=== PATIENT | male | born 2000 | race Caucasian/White ===

== ENCOUNTER 2019-12-15 05:31 | Emergency (ER) | payer MEDICAID, SELFPAY ==
[2019-12-15 05:35] VITALS: BP 148/84; PULSE 120; RESP 16; TEMP 36.5; O2SAT 98; BMI 21.9
[2019-12-15 05:41] VITALS: BP 140/94; PULSE 122; RESP 16; TEMP 36.9; O2SAT 98
--- NOTE | 2019-12-15 06:00 | PC.NURSE ---
Patient refused lab draw and needle stick explanation given as what it is for continued to refuse Dr Javed informed
[2019-12-15] MEDS: alum-mag-hydroxide-sime 30 mL UDC PO (06:14)
--- NOTE | 2019-12-15 06:17 | ED_ITS ---
HPI - Abdominal Pain General: Chief Complaint: Abdominal Pain Stated Complaint: abd pain Time Seen by Provider: 12/15/19 06:09 History of Present Illness: HPI narrative: This patient is a very nice 19-year-old male who presents with stomach pain. He is from [place] and drove up here to spend the weekend yesterday. He said he ate junk all day while he was driving and thinks that is what is causing his stomach pain. He said it feels like gas or indigestion. In the past he is taken Tums or omeprazole for it and it resolved. As he was traveling and its early he did not have anywhere to go to buy that. He came to the ED but he does not want to have any testing done. He refused labs. He denies nausea, vomiting, diarrhea. He is having normal bowel movements. He denies urinary symptoms. He denies fever cough. He does have some shortness of breath which he attributes to his history of asthma. He had an albuterol nebulizer this morning anything sets why his heart rate is high. MD elicited complaint: abdominal pain Onset (ago): hour(s) Pain Consistency: constant Location: Epigastric Severity: moderate Quality: fullness Radiation: none Migration to: no migration Exacerbating factors: nothing Relieving factors: nothing Associated Symptoms: Reports bloating Review of Systems GI: Reports: bloating Physical Exam Const: COMMON NORMALS: no acute distress, patient oriented x3, no limitations and alert GENERAL APPEARANCE: cooperative and comfortable HENMT: HEAD & SCALP: normal to inspection FACE & SINUS: normal facial exam Eye: GENERAL EYE: appearance normal, both eyes and all related structures Neck/C-Spine: COMMON NORMALS: supple, no meningeal signs and no JVD Chest: COMMONS NORMALS: normal inspection of the chest Resp: COMMON NORMALS: normal respiratory effort, No use of accessory muscles and clear to auscultation bilaterally (Except as noted) AUSCULTATION: clear to auscultation bilaterally (Except as noted) and wheezes (Trace, right upper) Cardio: COMMON NORMALS: no JVD, regular rhythm and No murmurs present (Cardio) RATE: tachycardic RHYTHM: regular rhythm GI: COMMON NORMALS: Normal to inspection, nondistended, normoactive bowel sounds present, Soft to palpation and non-tender INSPECTION: Yes normal to inspection AUSCULTATION: Yes normoactive bowel sounds PALPATION: Yes Soft to palpation and Yes Tenderness to palpation present (GI) (Minimal, epigastric) Back/Pelvis: COMMON NORMALS: thoracic and lumbar spine normal to inspection Extremity: COMMON NORMALS: normal to inspection Neuro: COMMON NORMALS: patient oriented x3, moves all extremities, no focal motor deficits and no sensory deficits noted SENSORIUM/ORIENTATION: Yes alert MENINGEAL SIGNS: Yes no meningeal signs Psych: COMMON NORMALS: mental status grossly normal, cooperative and normal affect Skin: COMMON NORMALS: no rashes or lesions noted and turgor normal GENERAL SKIN EXAM: no rashes or lesions noted and turgor normal Course ED course: I discussed with the patient that I would like to do some lab work to make sure there is nothing more serious than gas. A related to him some patients I could recall who presented with similar symptoms and ended up being appendicitis. He continued to prefer to not have lab work done. He has had this before and has had it resolve with Tums or omeprazole. He seems competent to make his own decisions and I will respect his wishes not to have any testing done. He seems to understand my concern. Will try some symptomatic treatment but he understands that if that is not working or if he is worsening later today that he needs to return for me to do some more testing. Vital Signs: Vital signs: Vital Signs Temperature 98.1 F 12/15/19 07:02 Pulse Rate 112 H 12/15/19 07:02 Respiratory Rate 18 12/15/19 07:02 Blood Pressure 145/79 12/15/19 07:02 Pulse Oximetry 98 12/15/19 07:02 Discharge Plan Discharge Patient Disposition: Home Clinical Impression: Abdominal pain Qualifiers: Abdominal location: epigastric Qualified Code(s): R10.13 - Epigastric pain Condition: Stable Discharge Orders: Discharge Order (Routine); Ordered 12/15/19 Ordered By: Eveline Olson Referrals: Elpidio Yadav MD [Primary Care Provider] - Discharge Diet: Usual diet Discharge Activity: Resume usual activity Patient Instructions: Abdominal Pain (ED) Activity Restrictions/Additional Instructions: Please return to the emergency department if you are not improving by the end of the day today. Your signs and symptoms could be indicating something more serious such as appendicitis. Discharge Date/Time: 12/15/19 07:05 Coding Level of Care Code ED Well Servicing Rig Operator for Chg Fwd Exam Comprehensive
[2019-12-15 07:02] VITALS: BP 145/79; PULSE 112; RESP 18; TEMP 36.7; O2SAT 98
== END 2019-12-15 07:05 | disposition home or self-care (01) ==
PROVIDERS: Emergency Provider Emergency Medicine; PCP Family Medicine
DX: R10.13 Epigastric pain (principal)
CPT/HCPCS: 12345; 99281

== ENCOUNTER 2021-06-30 20:25 | Inpatient (IN) | payer MEDICAID, SELFPAY ==
[2021-06-30] VITALS (9 sets, daily range): BP systolic 128–144; BP diastolic 70–84; PULSE 82–100; RESP 20–33; TEMP 36.7; O2SAT 90–100; BMI 22.2
--- NOTE | 2021-06-30 20:41 | XRR_ITS ---
PROCEDURE INFORMATION: Exam: XR Chest Exam date and time: 06/30/2021 8:46 PM Age: 21 years old Clinical indication: Dyspnea; Additional info: SOB TECHNIQUE: Imaging protocol: XR of the chest. Views: 1 view. COMPARISON: CR Chest 1 [place] [id number] 03/24/2019 4:11 AM FINDINGS: Lungs: No consolidation. Pleural spaces: No pleural effusion. No pneumothorax. Heart/Mediastinum: No cardiomegaly. Bones/joints: Unremarkable. XR/XR chest 1V portable [id number] IMPRESSION: 1. No acute abnormality demonstrated. 2. There is no interval change from the prior examination.
[2021-06-30 20:50] LABS: Basophils # 0.1 10^3/uL (0.0-0.1); Basophils % 0.7 %; Eosinophils # 0.7 10^3/uL (0.0-0.8); Eosinophils % 6.4 %; Hematocrit 50.6 % (42.0-52.0); Hemoglobin 16.3 g/dL (11.7-16.6); Lymphocytes # 2.8 10^3/uL (0.8-4.8); Lymphocytes % 24.1 %; Mean Corpuscular HGB Conc 32.2 g/dL (30.0-36.0); Mean Corpuscular Hemoglobin 28.5 pg (28.0-34.0); Mean Corpuscular Volume 88.5 fl (80-94); Mean Platelet Volume 9.4 fL (7.4-10.4); Monocytes % 9.1 %; Neutrophils # 6.79 10^3/uL (1.8-7.7); Neutrophils % 59.2 %; Nucleated Red Blood Cells % 0 %; Platelet Count 320 10^3/cmm (130-400); Red Blood Count 5.72 10^6/uL (4.1-5.3); Red Cell Distribution Width 13.2 % (12.1-15.1); White Blood Count 11.5 10^3/uL (4.0-10.0)
[2021-06-30] MEDS: magnesium sulfate premix 2 GM/50 ML PIGGYBACK IV (20:54)
[2021-06-30] MEDS: ipratropium-albuterol 3 mL Neb INHALATION (20:56)
[2021-06-30 21:12] LABS: Alanine Aminotransferase 10 U/L (0-41); Albumin Level 4.8 g/dL (3.5-5.2); Alkaline Phosphatase 116 IU/L (40-130); Anion Gap 14.1 (5-19); Aspartate Amino Transferase 15 U/L (0-40); Blood Urea Nitrogen 10 mg/dL (6-20); Calcium 9.8 mg/dL (8.5-10.5); Carbon Dioxide 26 mmol/L (22-29); Chloride 101 mmol/L (98-107); Globulin 2.6 g/dL (1.3-4.6); Glomerular Filtration Rate 104.6 mL/min (90-130); Glucose 88 mg/dL (65-115); Osmolality Calculated 282 mOsm/kg (285-295); Potassium 4.1 mmol/L (3.5-5.1); Sodium 137 mmol/L (136-145); Total Bilirubin 0.4 mg/dL (0.15-1.2); Total Protein 7.4 g/dL (6.6-8.7)
[2021-06-30] MEDS: LORazepam 2 mg/mL INJ 1 mL IVP (21:30)
[2021-06-30 22:47] LABS: ABG PCO2 41.9 mmHg (35-45); ABG PH Result 7.42 (7.35-7.45); Base Excess ABG 2.3 mmol/L (-2.0-2.0); Blood Gas Allen Test Pos; Blood Gas Sample Site Radial, right; Blood Gas Sample Type Arterial; HCO3 ABG 27.1 mmol/L (22-26); Oxygen Device BIPAP
--- NOTE | 2021-06-30 22:56 | PC.NURSE ---
Report given to MARE Reyez
--- NOTE | 2021-06-30 22:59 | ED_ITS ---
HPI - SOB/Dyspnea General: Chief Complaint: Shortness of Breath/Dyspnea Stated Complaint: SOB\Asthma Time Seen by Provider: 06/30/21 20:38 Source: patient History of Present Illness: HPI Narrative: 21-year-old male with a history of asthma. He tells me he also has a history of vocal cord dysfunction. He presents with shortness of breath, progressing over the last day or so. He denies fever. He has been coughing. He has used his nebulizer machine at home multiple times without improvement. With his asthma, he has a history of multiple intubations. MD elicited complaint: shortness of breath and cough Pertinent past history: asthma Onset (ago): hour(s) Timing: constant and progressively worsening Severity: severe Exacerbating factors: lying flat, exertion and coughing Relieving factors: nothing Known history of: asthma Associated symptoms: Reports chest congestion, chest pain, cough and nausea; Deny abdominal pain, diaphoresis, fever(s), hemoptysis or vomiting Treatment prior to arrival: bronchodilator Review of Systems Const: Denies: fever(s) or diaphoresis Eyes: Denies: change in vision ENMT: Denies: throat pain Card: Reports: chest pain Resp: Reports: dyspnea, non-productive cough and chest congestion; Denies: hemoptysis GI: Reports: nausea; Denies: abdominal pain or vomiting Skin/Breast: Denies: rash Neuro: Denies: headache(s) PFSH ED PFSH: Medical History Asthma Laryngopharyngeal reflux Vocal cord dysfunction Surgical History H/O rhinoplasty Family History Mother Asthma Father Asthma Social History Smoking and tobacco status: never smoked Alcohol intake: never Lives independently: Yes Marital status: Single Current occupational status: employed Physical Exam Const: GENERAL APPEARANCE: cooperative, in distress and ill appearing HENMT: COMMON NORMALS: normocephalic, atraumatic and Normal external nose present HEAD & SCALP: normocephalic and atraumatic FACE & SINUS: normal facial exam and face symmetric NOSE: Normal external nose present Eye: COMMON NORMALS: Equal, round and reactive pupils present and EOMs intact bilaterally PUPIL: Yes Equal, round and reactive pupils present Neck/C-Spine: GENERAL: No anterior neck swelling Chest: COMMONS NORMALS: normal inspection of the chest Resp: EFFORT & INSPECTION: Yes respiratory distress, Yes labored, Yes retractions and Yes uses accessory muscles AUSCULTATION: wheezes Cardio: COMMON NORMALS: regular rate and regular rhythm RATE: regular rate RHYTHM: regular rhythm GI: COMMON NORMALS: Normal to inspection, nondistended, normoactive bowel sounds present and Soft to palpation INSPECTION: No abdominal distension PALPATION: Yes Soft to palpation Extremity: COMMON NORMALS: no pedal edema Neuro: BJ COMA SCALE: document GCS findings Bj coma scale eye opening: Spontaneous [place] coma scale verbal response: Orientated Bj coma scale motor response: Obey commands [place] coma scale total score: 15 Course Vital Signs: Vital signs: Vital Signs Temperature 98.3 F 07/01/21 00:37 Pulse Rate 72 07/01/21 03:13 Respiratory Rate 14 07/01/21 03:13 Blood Pressure 118/74 07/01/21 00:11 Pulse Oximetry 97 07/01/21 03:13 MDM - SOB/Dyspnea Medical Decision Making Patient presents in significant respiratory distress, wheezing, with some st ridor as well. On arrival, he was given DuoNeb treatment followed by 3 [id number] albuterol treatments with mild improvement. He was still struggling to breathe, so was placed on BiPAP. He seems to be doing better. Current respiratory rate is 14. Heart rate is 84, saturations 95%. Blood pres sure is 131/70. His white blood cell count is 11.5. pH is 7.42 with a PCO2 of 42, and PO2 of 131. FiO2 of 0.3. Chest x-ray is negative. He will need to be admitted to ICU, especially given his history. He is received 125 mg of Solu- Medrol as well as magnesium sulfate 2 g. Lab Data : 06/30/21 20:43 06/30/21 20:43 Labs/Radiology: Radiology Impressions Chest X-Ray 06/30/21 20:41 IMPRESSION: 1. No acute abnormality demonstrated. 2. There is no interval change from the prior examination. Laboratory Results WBC 11.5 10^3/uL (4.0-10.0) H 06/30/21 20:43 RBC 5.72 10^6/uL (4.1-5.3) H 06/30/21 20:43 Hgb 16.3 g/dL (11.7-16.6) 06/30/21 20:43 Hct 50.6 % (42.0-52.0) 06/30/21 20:43 MCV 88.5 fl (80-94) 06/30/21 20:43 MCH 28.5 pg (28.0-34.0) 06/30/21 20:43 MCHC 32.2 g/dL (30.0-36.0) 06/30/21 20: RDW 13.2 % (12.1-15.1) 06/30/21 20:43 Plt Count 320 10^3/cmm (130-400) 06/30/21 20:43 MPV 9.4 fL (7.4-10.4) 06/30/21 20:43 Neut % (Auto) 59.2 % 06/30/21 20:43 Lymph % (Auto) 24.1 % 06/30/21 20:43 Leon % (Auto) 9.1 % 06/30/21 20:43 Eos % (Auto) 6.4 % 06/30/21 20:43 Baso % (Auto) 0.7 % 06/30/21:43 Neut # (Auto) 6.79 10^3/uL (1.8-7.7) 06/30/21 20:43 Lymph # (Auto) 2.8 10^3/uL (0.8-4.8) 06/30/21 20:43 Leon # (Auto) 1.0 10^3/uL (0.2-0.9) H 06/30/21 20:43 Eos # (Auto) 0.7 10^3/uL (0.0-0.8) 06/30/21 20:43 Baso # (Auto) 0.1 10^3/uL (0.0-0.1) 06/30/21 20:43 Nucleated RBC % (auto) 0 % 06/30/21: Nucleated RBCs # 0.0 /100WBC 06/30/21 20:43 Specimen Type Arterial 06/30/21 10:30 Sample Site Radial, right 06/30/21 10:30 ABG pH 7.42 (7.35-7.45) 06/30/21 10:30 ABG pCO2 41.9 mmHg (35-45) 06/30/21 10:30 ABG pO2 131.0 mmHg (80.0-100.0) H 06/30/21 10:30 ABG HCO3 27.1 mmol/L (22-26) H 06/30/21 10:30 ABG Base Excess 2.3 mmol/L (-2.0-2.0) H 06/30/21 10:30 Sachin Test Pos 06/30/21 10:30 Hematocrit 48.0 % (42-52) 06/30/21 10:30 O2 Delivery Device Bipap 06/30/21 10:30 FiO2 30.0 % 06/30/21 10:30 PEEP 6.0 cmH20 06/30/21 10:30 Production Scheduler ID Kiersteneri 06/30/21 10:30 Sodium 137 mmol/L (136-145) 06/30/21 20:43 Potassium 4.1 mmol/L (3.5-5.1) 06/30/21 20:43 Chloride 101 mmol/L (98-107) 06/30/21 20:43 Carbon Dioxide 26 mmol/L (22-29) 06/30/21 20:43 Anion Gap 14.1 (5-19) 06/30/21 20:43 BUN 10 mg/dL (6-20) 06/30/21 20:43 Creatinine 0.9 mg/dL (0.7-1.2) 06/30/21 20:43 GFR Calculation 104.6 mL/min (90-130) 06/30/21 20:43 Glucose 88 mg/dL (65-115) 06/30/21 20:43 Calculated Osmolality 282 mOsm/kg (285-295) L 06/30/21 20:43 Calcium 9.8 mg/dL (8.5-10.5) 06/30/21 20:43 Total Bilirubin 0.4 mg/dL (0.15-1.2) 06/30/21 20:43 AST 15 U/L (0-40) 06/30/21 20:43 ALT 10 U/L (0-41) 06/30/21 20:43 Alkaline Phosphatase 116 IU/L (40-130) 06/30/21 20:43 Total Protein 7.4 g/dL (6.6-8.7) 06/30/21 20:43 Albumin 4.8 g/dL (3.5-5.2) 06/30/21 20:43 Globulin 2.6 g/dL (1.3-4.6) 06/30/21 20:43 Critical Care Time Critical Care Time: Critical Care Time: Yes Total Critical Care Time: 36 Attestation: This case had a high probability of a clinically significant, sudden, or life threatening deterioration of this patient's condition which required my full and direct attention, intervention and personal management. Time is independent of any procedures performed. Discharge Plan Discharge Patient Disposition: Admitted As Inpatient Admit Provider: Brandon Bentley Clinical Impression: Status asthmaticus Condition: Stable Coding Level of Care Code ED Branch Officer for Chg Fwd Exam Comprehensive
[2021-06-30] MEDS: racepinephrine 0.5 mL Neb INHALATION (23:49)
[2021-07-01] VITALS (242 sets, daily range): BP systolic 93–136; BP diastolic 38–80; PULSE 59–137; RESP 0–32; TEMP 36.5–36.8; O2SAT 87–100
--- NOTE | 2021-07-01 00:29 | XRR_ITS ---
PROCEDURE INFORMATION: Exam: XR Soft Tissue Neck Exam date and time: 07/01/2021 5:18 AM Age: 21 years old Clinical indication: Epiglottitis; Chronic; Additional info: Epiglottis TECHNIQUE: Imaging protocol: XR of the soft tissues of the neck. COMPARISON: CR (CHEST, ) 06/30/2021 8:46 PM FINDINGS: Airway: Normal. No abnormal narrowing. Soft tissues: Normal. Normal epiglottis. Bones/joints: Unremarkable. XR/XR soft tissue neck 12511 IMPRESSION: No acute findings. The epiglottis is normal in configuration.
--- NOTE | 2021-07-01 00:29 | PM.HP ---
Providers/Chief Complaint Admitting Physician: Brandon Bentley Primary Care Provider: Elpidio Yadav MD Chief Complaint: SOB\Asthma History of Present Illness 21-year-old gentleman with history of asthma, vocal cord dysfunction, reports he had been sprayed painting a house outdoors and today started feeling short of breath, he states that he used his nebulizer with albuterol at home, but did not feel better. Came into ER where he was found to have diminished air entry bilaterally, was given DuoNeb, subsequently albuterol neb x3, given dose of Solu-Medrol, still sounding tight, was given a dose of magnesium, with some upper respiratory/vocal cord wheeze, is given racemic epinephrine as well. Has history of intubation mechanical ventilation in the past. He is maintaining oxygen saturation well. ABG is 7.42/41 point /27. Chest x-ray unremarkable. COVID-19 PCR is requested. He has been afebrile, noted minimal leukocytosis 11.5. He has had no headache, nausea vomiting or diarrhea. No muscle aches or chills. No pharyngeal symptoms. He has not been drooling. States that he is hungry and is requesting for some broth. Review of Systems Const: Denies: fever(s), chills, body aches or malaise Eyes: Denies: change in vision, eye discomfort or eye redness ENMT: Denies: throat pain, oral sores or ear or mastoid pain Card: Denies: chest pain, edema, pre-syncope or dyspnea on exertion Resp: Reports: dyspnea and wheezing; Denies: productive cough, change in phlegm color or hemoptysis GI: Denies: abdominal pain, nausea, vomiting, diarrhea, constipation, hematochezia or melena : Denies: flank pain, difficulty urinating, urinary frequency or hematuria Musc: Denies: back pain, joint swelling or joint redness Skin/Breast: Denies: rash or new lesions Neuro: Denies: headache(s), numbness in extremities, weakness in extremities, dizziness, confusion or seizure-like activity Endo: Denies: polyuria or polydipsia Raphael/Lymph: Denies: easy bleeding or tender lymph nodes All/Imm: Denies: urticaria or tongue swelling Medications/Allergies Home Medications Medication Instructions Recorded Confirmed Last Taken Type albuterol sulfate 2.5 mg INHALATION Q4H PRN 02/02/20 02/02/20 Unknown History albuterol sulfate 90 mcg/actuation 2 puff INHALATION Q4H PRN gm 02/02/20 02/02/20 Unknown History aerosol inhaler (ProAir HFA) cetirizine 10 mg capsule (Zyrtec) 10 mg PO DAILY 02/02/20 02/02/20 Unknown History Allergies Allergy/AdvReac Type Severity Reaction Status Date / Time codeine AdvReac ADR-Halluci Verified 06/30/21 21:52 nating PFSH Acute PFSH: Medical History Asthma Laryngopharyngeal reflux Vocal cord dysfunction Surgical History H/O rhinoplasty Family History Mother Asthma Father Asthma Social History Smoking and tobacco status: never smoked Alcohol intake: never Lives independently: Yes Marital status: Single Current occupational status: employed Vitals/I&O/Wt Last Vital Signs Temp 98.0 F 06/30/21 20:35 Pulse 90 07/01/21 00:11 Resp 30 H 07/01/21 00:11 BP 118/74 07/01/21 00:11 Pulse Ox 95 07/01/21 00:11 Weight last 48 hrs Weight 64.41 kg Physical Exam Const: COMMON NORMALS: alert GENERAL APPEARANCE: cooperative ORIENTATION/CONSCIOUSNESS: Yes awake HENMT: COMMON NORMALS: normocephalic, EAC's normal, Normal external nose present and moist oral mucous membranes HEAD & SCALP: normocephalic NOSE: Normal external nose present EXTERNAL AUDITORY CANAL: EAC's normal Neck/C-Spine: COMMON NORMALS: no meningeal signs Chest: CHEST: Yes Symmetrical chest wall rise Resp: AUSCULTATION: wheezes (Some wheezing noted, although mostly from around vocal cords) and diminished lung sounds (Mildly) Cardio: COMMON NORMALS: regular rate, regular rhythm and No murmurs present (Cardio) RATE: regular rate RHYTHM: regular rhythm GI: COMMON NORMALS: Normal to inspection, nondistended, normoactive bowel sounds present, Soft to palpation and non-tender PALPATION: Yes Soft to palpation Extremity: COMMON NORMALS: no pedal edema Neuro: COMMON NORMALS: moves all extremities SENSORIUM/ORIENTATION: Yes alert MENINGEAL SIGNS: Yes no meningeal signs Psych: COMMON NORMALS: mental status grossly normal Skin: COMMON NORMALS: no wounds RASHES: no rashes Data : 06/30/21 20:43 06/30/21 20:43 Micro: Microbiology 06/30/21 21:10 Blood Culture - Preliminary Blood SPECIMEN COLLECTED 06/30/21 20:40 Blood Culture - Preliminary Blood SPECIMEN COLLECTED A&P Assessment and plan (1) Status asthmaticus: Asthma exacerbation, appears mostly with vocal cord dysfunction as well given some upper respiratory wheezing around vocal cords noted on exam. For now continue with nebulization treatments, steroids, inhaled steroids. Status: Acute (2) Vocal cord dysfunction: States he used to follow with a industrial electrical technician in [place], but can no longer afford to keep going to [place] for follow-up. Status: Acute Attestations Medical Necessity Statement*: Admission of over 2 midnights is anticipated for status asthmaticus. Coding Level of Care Code Acute Marketing Graphics Specialist for [facility] Diagnoses Status asthmaticus J45.902 Vocal cord dysfunction J38.3
[2021-07-01 01:56] LABS: Adenovirus Not Detected (NOT DETECT); Chlamydia Pneumoniae Not Detected (NOT DETECT); Coronavirus 229E,HKU1,NL63,OC4 Not Detected (NOT DETECT); Human Metapneumovirus Not Detected (NOT DETECT); Human Rhinovirus/Enterovirus Not Detected (NOT DETECT); Influenza A Not Detected (NOT DETECT); Influenza A H1 Not Detected (NOT DETECT); Influenza A H1-2009 Not Detected (NOT DETECT); Influenza A H3 Not Detected (NOT DETECT); Influenza B Not Detected (NOT DETECT); Mycoplasma Pneumoniae Not Detected (NOT DETECT); Parainfluenza Virus Type 1 Not Detected (NOT DETECT); Parainfluenza Virus Type 2 Not Detected (NOT DETECT); Parainfluenza Virus Type 3 Not Detected (NOT DETECT); Parainfluenza Virus Type 4 Not Detected (NOT DETECT); Respiratory Syncytial Virus A Not Detected (NOT DETECT); Respiratory Syncytial Virus B Not Detected (NOT DETECT); SARS-COV-2 Not Detected (NOT DETECT)
[2021-07-01] MEDS: pantoprazole 40 mg SDV IVP (02:43)
[2021-07-01] MEDS: budesonide 0.5 mg/2 mL Neb INHALATION ×2 (08:11→20:00)
--- NOTE | 2021-07-01 09:55 | PC.PHAR ---
pt states he takes care of his own medications-pt states gave him prednisone as a titrating dose- office states last gave 2019 20mg take 40mg daily for 5 days office states not seen pt since 2019-pt states he filled at [facility] states not filled anything for 18 months for the pt-pt states he just stop taking prednisone last week sometime-notes are made in the pharmacy comments
--- NOTE | 2021-07-01 12:14 | PC.CHAP ---
Pastoral Care Encounter/Spiritual Assessment Type of Contact [] Declined cover making machine operator visit [] Patient/Family/Request visit [] Outpatient visit [] Follow-up visit [] Physician referral [] Code/Alert [x] Routine visit [] Staff referral [] Actively dying [] Patient sleeping [] Family support [] [] Out of room [] Palliative care [] [] Receiving care in room [] Pre-surgical visit [] Trauma [] Long length of stay [x] ICU visit [] Other: Relational/Emotional Strength [] Patient feels connected with others/family/visitors/staff [] Distress [] Loneliness/isolation [] Abandonment Spirituality of Patient [] Person of Maria Teresa [] Attends Advent of their Maria Teresa [] Believes in Prayer [] Reads Bible or Quaker materials [] There are Spiritual issues to be addressed Clinical Transplant Coordinator Interventions [x] Prayer [] Active listening [] Non-anxious presence [] Spiritual/emotional support [] Crisis/trauma care [] Spiritual counseling [] Bereavement support [] Provided bereavement packet [] Provided Bible/devotional materials [] Provided toy/stuffed animal, coloring book to patient or family member [] Provided Communion [] Anointing/[place] [] Salvation [x] Completed spiritual assessment [] Other: Impact on Illness or Injury [] Angry [] Fearful [] Anxious [] Often cries [] Exhaustion [] Unable to work [] Unable to attend spiritism [] Unable to walk/stand [] Unable to read [] Unable to drive [] Unable to eat/drink [] Unable to sleep [] Unable to be with family [] Patient intubated [] Other: Summary Time spent with patient x
--- NOTE | 2021-07-01 14:19 | PM.PN ---
Subjective Subjective: Patient was seen this morning, currently on room air, he tells me that his airway still feel quite tight, but he overall feels better, no fevers, no chills, no nausea, no vomiting Vitals/I&O/Wt Last Vital Signs Temp 97.7 F 07/01/21 07:30 Pulse 86 07/01/21 12:05 Resp 14 07/01/21 12:05 BP 118/43 07/01/21 12:05 Pulse Ox 96 07/01/21 12:05 06/30/21 07/01/21 07/01/21 22:59 06:59 14:59 Intake Total 240 / 240 Output Total 750 / 750 Balance -510 / -510 Weight last 48 hrs Weight 64.41 kg Physical Exam Const: COMMON NORMALS: no acute distress and patient oriented x3 Resp: COMMON NORMALS: normal respiratory effort and No use of accessory muscles AUSCULTATION: diminished lung sounds bilateral OTHER: Wheezing heard Cardio: COMMON NORMALS: regular rate, regular rhythm, S1 normal heart sound present and S2 normal heart sound present RATE: regular rate RHYTHM: regular rhythm HEART SOUNDS: S1 normal heart sound present and S2 normal heart sound present GI: COMMON NORMALS: Normal to inspection, nondistended, normoactive bowel sounds present, Soft to palpation, non-tender and No hepatosplenomegaly present PALPATION: Yes Soft to palpation and Yes No hepatosplenomegaly present Extremity: COMMON NORMALS: no pedal edema Neuro: COMMON NORMALS: patient oriented x3 Psych: COMMON NORMALS: mental status grossly normal Data : 06/30/21 20:43 06/30/21 20:43 Micro: Microbiology 06/30/21 21:10 Blood Culture - Preliminary Blood SPECIMEN COLLECTED 06/30/21 20:40 Blood Culture - Preliminary Blood SPECIMEN COLLECTED A&P Assessment and plan (1) Status asthmaticus: Asthma exacerbation, appears mostly with vocal cord dysfunction as well given some upper respiratory wheezing around vocal cords noted on exam. For now continue with nebulization treatments, steroids, inhaled steroids. Status: Acute (2) Vocal cord dysfunction: States he used to follow with a college admissions counselor in [place], but can no longer afford to keep going to [place] for follow-up. Status: Acute Attestations Medical Necessity Statement*: Patient requires hospitalization for asthma exacerbation, Coding Level of Care Code Acute Reinforcing Bar Setter for [facility] Diagnoses Status asthmaticus J45.902 Vocal cord dysfunction J38.3
[2021-07-01] MEDS: doxycycline 100 MG in sodium chloride 0.9% (plus) 100 ML IV (15:07)
[2021-07-01] MEDS: racepinephrine 0.5 mL Neb INHALATION (15:10)
[2021-07-01] MEDS: magnesium sulfate premix 2 GM/50 ML PIGGYBACK IV (15:13)
[2021-07-02] VITALS (101 sets, daily range): BP systolic 100–134; BP diastolic 41–71; PULSE 69–132; RESP 11–27; TEMP 36.6–36.8; O2SAT 92–99
[2021-07-02] MEDS: pantoprazole 40 mg SDV IVP (01:38)
[2021-07-02] MEDS: doxycycline 100 MG in sodium chloride 0.9% (plus) 100 ML IV ×2 (03:57→14:30)
[2021-07-02 03:59] LABS: Basophils % 0.1 %; Eosinophils % 0.1 %; Hematocrit 45.6 % (42.0-52.0); Hemoglobin 14.9 g/dL (11.7-16.6); Lymphocytes # 1.5 10^3/uL (0.8-4.8); Lymphocytes % 7.9 %; Mean Corpuscular HGB Conc 32.7 g/dL (30.0-36.0); Mean Corpuscular Hemoglobin 29.1 pg (28.0-34.0); Mean Corpuscular Volume 89.1 fl (80-94); Mean Platelet Volume 9.6 fL (7.4-10.4); Monocytes # 1.3 10^3/uL (0.2-0.9); Monocytes % 6.5 %; Neutrophils # 16.45 10^3/uL (1.8-7.7); Neutrophils % 84.6 %; Nucleated Red Blood Cells % 0 %; Platelet Count 323 10^3/cmm (130-400); Red Blood Count 5.12 10^6/uL (4.1-5.3); Red Cell Distribution Width 12.4 % (12.1-15.1); White Blood Count 19.4 10^3/uL (4.0-10.0)
[2021-07-02 04:17] LABS: Anion Gap 15.2 (5-19); Blood Urea Nitrogen 19 mg/dL (6-20); Calcium 9.5 mg/dL (8.5-10.5); Carbon Dioxide 24 mmol/L (22-29); Chloride 103 mmol/L (98-107); Glomerular Filtration Rate 119.8 mL/min (90-130); Glucose 155 mg/dL (65-115); Osmolality Calculated 289 mOsm/kg (285-295); Potassium 5.2 mmol/L (3.5-5.1); Sodium 137 mmol/L (136-145)
[2021-07-02] MEDS: budesonide 0.5 mg/2 mL Neb INHALATION ×2 (07:40→20:22)
--- NOTE | 2021-07-02 13:13 | P.PN_ITS ---
Subjective Subjective: Patient was seen this morning, he tells me his breathing has significantly improved, he did have an episode of airway tightness yesterday afternoon, but it subsequently resolved, no recurrent symptoms, no trouble breathing, no trouble swallowing Vitals/I&O/Wt Last Vital Signs Temp 97.8 F 07/02/21 04:00 Pulse 77 07/02/21 11:07 Resp 15 07/02/21 11:07 BP 113/50 07/02/21 04:00 Pulse Ox 96 07/02/21 11:07 07/01/21 07/02/21 07/02/21 22:59 06:59 14:59 Intake Total 422 / 662 130 / 130 Output Total 750 / 1500 Balance -328 / -838 130 / 130 Weight last 48 hrs Weight 64.41 kg Physical Exam Const: COMMON NORMALS: no acute distress and patient oriented x3 Resp: COMMON NORMALS: normal respiratory effort, No retractions and No use of accessory muscles AUSCULTATION: wheezes Cardio: COMMON NORMALS: regular rate, regular rhythm, S1 normal heart sound present and S2 normal heart sound present RATE: regular rate RHYTHM: regular rhythm HEART SOUNDS: S1 normal heart sound present and S2 normal heart sound present GI: COMMON NORMALS: Normal to inspection, nondistended, normoactive bowel sounds present, Soft to palpation, non-tender and No hepatosplenomegaly present PALPATION: Yes Soft to palpation and Yes No hepatosplenomegaly present Extremity: COMMON NORMALS: no pedal edema Neuro: COMMON NORMALS: patient oriented x3 Psych: COMMON NORMALS: mental status grossly normal Data : 07/02/21 03:36 07/02/21 03:36 Micro: Microbiology 06/30/21 21:10 Blood Culture - Preliminary Blood NEGATIVE TO DATE 06/30/21 20:40 Blood Culture - Preliminary Blood NEGATIVE TO DATE A&P Assessment and plan (1) Status asthmaticus: Asthma exacerbation, appears mostly with vocal cord dysfunction as well given some upper respiratory wheezing around vocal cords noted on exam. For now continue with nebulization treatments, steroids, inhaled steroids. Doxycycline added for anti-inflammatory coverage, Kayexalate for hyperkalemia Status: Acute (2) Vocal cord dysfunction: States he used to follow with a plumbing installer in [place], but can no longer afford to keep going to [place] for follow-up. Status: Acute Attestations Medical Necessity Statement*: Patient requires hospitalization for acute asthma exacerbation, critical care time spent over 25 minutes Coding Level of Care Code Acute Project Product Manager for Milagro Alberto Diagnoses Status asthmaticus J45.902 Vocal cord dysfunction J38.3
[2021-07-02] MEDS: sodium polystyrene sulfonate 15 gm/60 mL Btl PO (14:29)
[2021-07-02 22:34] LABS: Glucose Point of Care 144 mg/dL (70-110)
[2021-07-03] VITALS (43 sets, daily range): BP systolic 111–140; BP diastolic 52–62; PULSE 66–107; RESP 13–24; TEMP 36.6–37.1; O2SAT 93–100
[2021-07-03] MEDS: pantoprazole 40 mg SDV IVP ×2 (00:14→23:56)
[2021-07-03] MEDS: doxycycline 100 MG in sodium chloride 0.9% (plus) 100 ML IV ×2 (03:01→14:40)
[2021-07-03 03:02] LABS: Basophils % 0.2 %; Hematocrit 43.5 % (42.0-52.0); Lymphocytes # 1.2 10^3/uL (0.8-4.8); Lymphocytes % 6.5 %; Mean Corpuscular HGB Conc 32.2 g/dL (30.0-36.0); Mean Corpuscular Hemoglobin 28.5 pg (28.0-34.0); Mean Corpuscular Volume 88.6 fl (80-94); Monocytes # 0.8 10^3/uL (0.2-0.9); Monocytes % 4.1 %; Neutrophils # 16.59 10^3/uL (1.8-7.7); Nucleated Red Blood Cells % 0 %; Platelet Count 321 10^3/cmm (130-400); Red Blood Count 4.91 10^6/uL (4.1-5.3); Red Cell Distribution Width 12.6 % (12.1-15.1); White Blood Count 18.9 10^3/uL (4.0-10.0)
[2021-07-03 03:32] LABS: Blood Urea Nitrogen 16 mg/dL (6-20); Calcium 9.5 mg/dL (8.5-10.5); Carbon Dioxide 23 mmol/L (22-29); Chloride 105 mmol/L (98-107); Glomerular Filtration Rate 119.8 mL/min (90-130); Glucose 154 mg/dL (65-115); Osmolality Calculated 288 mOsm/kg (285-295); Sodium 137 mmol/L (136-145)
[2021-07-03 03:37] LABS: Anion Gap 13.4 (5-19); Potassium 4.4 mmol/L (3.5-5.1)
[2021-07-03] MEDS: budesonide 0.5 mg/2 mL Neb INHALATION ×2 (08:18→19:57)
--- NOTE | 2021-07-03 12:07 | PC.CHAP ---
Pastoral Care Encounter/Spiritual Assessment Type of Contact [] Declined merchandise execution leader visit [] Patient/Family/Request visit [] Outpatient visit [] Follow-up visit [] Physician referral [] Code/Alert []x Routine visit [] Staff referral [] Actively dying [x] Patient sleeping [] Family support [] [] Out of room [] Palliative care [] [] Receiving care in room [] Pre-surgical visit [] Trauma [] Long length of stay [x] ICU visit [] Other: Relational/Emotional Strength [] Patient feels connected with others/family/visitors/staff [] Distress [] Loneliness/isolation [] Abandonment Spirituality of Patient [] Person of Maria Teresa [] Attends Pentecostal of their Maria Teresa [] Believes in Prayer [] Reads Bible or Yarsanism materials [] There are Spiritual issues to be addressed Booking Manager Interventions [x] Prayer [] Active listening [] Non-anxious presence [] Spiritual/emotional support [] Crisis/trauma care [] Spiritual counseling [] Bereavement support [] Provided bereavement packet [] Provided Bible/devotional materials [] Provided toy/stuffed animal, coloring book to patient or family member [] Provided Communion [] Anointing/[place] [] Salvation [x] Completed spiritual assessment [] Other: Impact on Illness or Injury [] Angry [] Fearful [] Anxious [] Often cries [] Exhaustion [] Unable to work [] Unable to attend evangelical [] Unable to walk/stand [] Unable to read [] Unable to drive [] Unable to eat/drink [] Unable to sleep [] Unable to be with family [] Patient intubated [] Other: Summary Time spent with patient
--- NOTE | 2021-07-03 12:51 | PM.PN ---
Subjective Subjective: Patient was seen this morning, he tells me that his breathing has significantly improved, afebrile overnight Vitals/I&O/Wt Last Vital Signs Temp 98.1 F 07/03/21 04:00 Pulse 72 07/03/21 08:30 Resp 14 07/03/21 08:30 BP 111/56 07/03/21 08:30 Pulse Ox 93 07/03/21 08:20 07/02/21 07/03/21 07/03/21 22:59 06:59 14:59 Intake Total 1162 / 1292 100 / 1392 240 / 240 Output Total 1200 / 1999 Balance -38 / -708 100 / -608 240 / 240 Physical Exam Const: COMMON NORMALS: no acute distress and patient oriented x3 Resp: COMMON NORMALS: normal respiratory effort, No retractions and No use of accessory muscles EFFORT & INSPECTION: Yes able to speak in complete sentences AUSCULTATION: wheezes Cardio: COMMON NORMALS: regular rate, regular rhythm, S1 normal heart sound present and S2 normal heart sound present RATE: regular rate RHYTHM: regular rhythm HEART SOUNDS: S1 normal heart sound present and S2 normal heart sound present GI: COMMON NORMALS: Normal to inspection, nondistended, normoactive bowel sounds present, Soft to palpation, non-tender and No hepatosplenomegaly present PALPATION: Yes Soft to palpation and Yes No hepatosplenomegaly present Extremity: COMMON NORMALS: no pedal edema Neuro: COMMON NORMALS: patient oriented x3 Psych: COMMON NORMALS: mental status grossly normal Data : 07/03/21 02:47 07/03/21 02:47 Micro: Microbiology 06/30/21 20:40 Blood Culture - Preliminary Blood 06/30/21 21:10 Blood Culture - Preliminary Blood Staphylococcus sp coag neg A&P Assessment and plan (1) Status asthmaticus: Asthma exacerbation, appears mostly with vocal cord dysfunction as well given some upper respiratory wheezing around vocal cords noted on exam. For now continue with nebulization treatments, steroids, inhaled steroids. Doxycycline added for anti-inflammatory coverage, Kayexalate for hyperkalemia Status: Acute (2) Vocal cord dysfunction: States he used to follow with a beater engineer in [place], but can no longer afford to keep going to [place] for follow-up. Status: Acute Attestations Medical Necessity Statement*: Cross hospitalization for asthma exacerbation Coding Level of Care Code Acute Supervisor Brake Repair for Chg Fwd Diagnoses Status asthmaticus J45.902 Vocal cord dysfunction J38.3
[2021-07-04] VITALS (20 sets, daily range): BP systolic 132–145; BP diastolic 60–85; PULSE 78–106; RESP 14–23; TEMP 36.6–37.1; O2SAT 93–97
[2021-07-04] MEDS: doxycycline 100 MG in sodium chloride 0.9% (plus) 100 ML IV ×2 (03:17→15:34)
[2021-07-04 04:25] LABS: Basophils % 0.2 %; Hematocrit 42.9 % (42.0-52.0); Hemoglobin 13.9 g/dL (11.7-16.6); Lymphocytes # 1.2 10^3/uL (0.8-4.8); Mean Corpuscular HGB Conc 32.4 g/dL (30.0-36.0); Mean Corpuscular Hemoglobin 28.5 pg (28.0-34.0); Mean Corpuscular Volume 87.9 fl (80-94); Mean Platelet Volume 9.6 fL (7.4-10.4); Monocytes # 0.8 10^3/uL (0.2-0.9); Monocytes % 3.9 %; Neutrophils # 17.04 10^3/uL (1.8-7.7); Neutrophils % 86.6 %; Nucleated Red Blood Cells % 0 %; Platelet Count 291 10^3/cmm (130-400); Red Blood Count 4.88 10^6/uL (4.1-5.3); Red Cell Distribution Width 12.5 % (12.1-15.1); White Blood Count 19.7 10^3/uL (4.0-10.0)
[2021-07-04 04:45] LABS: Anion Gap 14.3 (5-19); Blood Urea Nitrogen 15 mg/dL (6-20); Calcium 9.4 mg/dL (8.5-10.5); Carbon Dioxide 23 mmol/L (22-29); Chloride 103 mmol/L (98-107); Creatinine Clr Calc Pharmacy 151.8771; Glomerular Filtration Rate 139.8 mL/min (90-130); Glucose 186 mg/dL (65-115); Osmolality Calculated 288 mOsm/kg (285-295); Potassium 4.3 mmol/L (3.5-5.1); Sodium 136 mmol/L (136-145)
[2021-07-04] MEDS: budesonide 0.5 mg/2 mL Neb INHALATION ×2 (08:50→20:30)
--- NOTE | 2021-07-04 15:40 | PM.PN ---
Subjective Subjective: Patient was seen this morning, he tells me that his airway still feel a bit tight, he is not ready to leave the hospital, no fevers overnight, no severe shortness of breath with exertion Vitals/I&O/Wt Last Vital Signs Temp 98.7 F 07/04/21 12:00 Pulse 80 07/04/21 12:00 Resp 16 07/04/21 12:00 BP 132/60 07/04/21 12:00 Pulse Ox 93 07/04/21 12:00 07/04/21 07/04/21 07/04/21 06:59 14:59 22:59 Intake Total 800 / 2360 Balance 800 / 1960 Physical Exam Const: COMMON NORMALS: no acute distress and patient oriented x3 Resp: COMMON NORMALS: normal respiratory effort, No retractions, No use of accessory muscles and clear to auscultation bilaterally AUSCULTATION: clear to auscultation bilaterally Cardio: COMMON NORMALS: regular rate, regular rhythm, S1 normal heart sound present and S2 normal heart sound present RATE: regular rate RHYTHM: regular rhythm HEART SOUNDS: S1 normal heart sound present and S2 normal heart sound present GI: COMMON NORMALS: Normal to inspection, nondistended, normoactive bowel sounds present, Soft to palpation and non-tender PALPATION: Yes Soft to palpation Extremity: COMMON NORMALS: no pedal edema Neuro: COMMON NORMALS: patient oriented x3 Psych: COMMON NORMALS: mental status grossly normal Data : 07/04/21 04:08 07/04/21 04:08 A&P Assessment and plan (1) Status asthmaticus: Asthma exacerbation, appears mostly with vocal cord dysfunction as well given some upper respiratory wheezing around vocal cords noted on exam. For now continue with nebulization treatments, steroids, inhaled steroids. Doxycycline added for anti-inflammatory coverage, likely discharge in next 24 hours Status: Acute (2) Vocal cord dysfunction: States he used to follow with a regional sales trainer in [place], but can no longer afford to keep going to [place] for follow-up. Status: Acute Attestations Medical Necessity Statement*: Patient requires hospitalization for asthma exacerbation Coding Level of Care Code Acute Supervisor Carbon Electrodes for Milagro Alberto Diagnoses Status asthmaticus J45.902 Vocal cord dysfunction J38.3
[2021-07-04] MEDS: pantoprazole 40 mg SDV IVP (23:31)
[2021-07-05] VITALS (12 sets, daily range): BP systolic 130–140; BP diastolic 61–64; PULSE 72–96; RESP 12–22; TEMP 36.7; O2SAT 94–96
[2021-07-05] MEDS: doxycycline 100 MG in sodium chloride 0.9% (plus) 100 ML IV (02:49)
[2021-07-05 04:17] LABS: Basophils # 0.1 10^3/uL (0.0-0.1); Basophils % 0.3 %; Hematocrit 43.5 % (42.0-52.0); Hemoglobin 14.2 g/dL (11.7-16.6); Lymphocytes # 1.8 10^3/uL (0.8-4.8); Lymphocytes % 9.1 %; Mean Corpuscular HGB Conc 32.6 g/dL (30.0-36.0); Mean Corpuscular Hemoglobin 29.1 pg (28.0-34.0); Mean Corpuscular Volume 89.1 fl (80-94); Mean Platelet Volume 9.8 fL (7.4-10.4); Monocytes # 0.9 10^3/uL (0.2-0.9); Monocytes % 4.5 %; Neutrophils # 16.09 10^3/uL (1.8-7.7); Neutrophils % 81.3 %; Nucleated Red Blood Cells % 0 %; Platelet Count 309 10^3/cmm (130-400); Red Blood Count 4.88 10^6/uL (4.1-5.3); Red Cell Distribution Width 12.7 % (12.1-15.1); White Blood Count 19.8 10^3/uL (4.0-10.0)
[2021-07-05 04:34] LABS: Alanine Aminotransferase 10 U/L (0-41); Albumin Level 4.1 g/dL (3.5-5.2); Alkaline Phosphatase 76 IU/L (40-130); Aspartate Amino Transferase 11 U/L (0-40); Blood Urea Nitrogen 19 mg/dL (6-20); Calcium 9.4 mg/dL (8.5-10.5); Carbon Dioxide 23 mmol/L (22-29); Chloride 99 mmol/L (98-107); Creatinine Clr Calc Pharmacy 151.8771; Glomerular Filtration Rate 139.8 mL/min (90-130); Glucose 143 mg/dL (65-115); Osmolality Calculated 281 mOsm/kg (285-295); Sodium 133 mmol/L (136-145); Total Bilirubin 0.2 mg/dL (0.15-1.2); Total Protein 6.1 g/dL (6.6-8.7)
[2021-07-05 04:40] LABS: Anion Gap 15.1 (5-19); Potassium 4.1 mmol/L (3.5-5.1)
[2021-07-05] MEDS: budesonide 0.5 mg/2 mL Neb INHALATION (07:40)
--- NOTE | 2021-07-05 10:13 | P.DS_ITS ---
Discharge Providers Date of Admission: 07/01/21 00:16 Date of Discharge: July 05, 2021 Attending Provider at Admission: Brandon Bentley Attending Provider at Discharge: Bhavik Lima MD Primary Care Provider: Elpidio Yadav MD Diagnoses at Discharge Discharge Diagnosis (1) Status asthmaticus: Status: Acute (2) Vocal cord dysfunction: Status: Acute Reason for Visit Reason for Visit: SOB\Asthma Hospital Course Hospital Course This is a 21-year-old male with a past medical history of asthma, vocal cord dysfunction, who presents to [facility] for shortness of breath after scraping his house outdoors Patient was admitted to [facility] for severe asthma exacerbation, status asthmaticus, requiring ICU admission, receiving steroid therapy, nebulizer treatments, initially required BiPAP, then transition to nasal cannula, and at room air. Patient clinically improved, ambulating without symptom symptomatology, lungs still having scattered wheezing, but breath sounds bilaterally. Patient will be discharged on a long prednisone taper with albuterol Advair, doxycycline for close follow-up with primary care provider. follow-up with Dr. Nettles as outpatient. During his hospitalization, patient was found to have gram-positive bacteremia, likely contaminant, however 3 of 4 blood cultures were positive, he remained afebrile, relatively asymptomatic. Blood cultures came back positive for staphylococcal warneri, likely contaminant, however found on 3 of 4 blood cultures. He denies any IV drug use, no murmur on exam, no chest pain. I have repeated blood cultures, follow-up with blood cultures with outpatient primary care physician. If he were to have fevers, chills, go to the emergency room Physical Exam Const: COMMON NORMALS: no acute distress and patient oriented x3 Resp: COMMON NORMALS: normal respiratory effort, No retractions, No use of accessory muscles and clear to auscultation bilaterally AUSCULTATION: clear to auscultation bilaterally Cardio: COMMON NORMALS: regular rate, regular rhythm, S1 normal heart sound present and S2 normal heart sound present RATE: regular rate RHYTHM: regular rhythm HEART SOUNDS: S1 normal heart sound present and S2 normal heart sound present GI: COMMON NORMALS: Normal to inspection, nondistended, normoactive bowel sounds present, Soft to palpation and non-tender PALPATION: Yes Soft to palpation Extremity: COMMON NORMALS: no pedal edema Neuro: COMMON NORMALS: patient oriented x3 Psych: COMMON NORMALS: mental status grossly normal Discharge Data Studies Completed and Pending Completed Studies During Hospitalization Category Date Time Status XR chest 1V portable [id number] Stat Exams 06/30/21 20:41 Completed XR soft tissue neck [id number] Routine Exams 07/01/21 00:29 Completed Pending at discharge Category Date Time Status Blood Culture Stat Lab 06/30/21 21:10 Results Complete Blood Count w/Auto AM LABS Lab 07/06/21 04:00 Ordered Complete Blood Count w/Auto AM LABS Lab 07/07/21 04:00 Ordered Comprehensive Metabolic Panel AM LABS Lab 07/06/21 04:00 Ordered Comprehensive Metabolic Panel AM LABS Lab 07/07/21 04:00 Ordered Radiology Impressions Chest X-Ray 06/30/21 20:41 IMPRESSION: 1. No acute abnormality demonstrated. 2. There is no interval change from the prior examination. Soft Tissue Neck X-Ray 07/01/21 00:29 IMPRESSION: No acute findings. The epiglottis is normal in configuration. Laboratory Results WBC 19.8 10^3/uL (4.0-10.0) H 07/05/21 03:49 RBC 4.88 10^6/uL (4.1-5.3) 07/05/21 03:49 Hgb 14.2 g/dL (11.7-16.6) 07/05/21 03:49 Hct 43.5 % (42.0-52.0) 07/05/21 03:49 MCV 89.1 fl (80-94) 07/05/21 03:49 MCH 29.1 pg (28.0-34.0) 07/05/21 03:49 MCHC 32.6 g/dL (30.0-36.0) 07/05/21 03:49 RDW 12.7 % (12.1-15.1) 07/05/21 03:49 Plt Count 309 10^3/cmm (130-400) 07/05/21 03:49 MPV 9.8 fL (7.4-10.4) 07/05/21 03:49 Neut % (Auto) 81.3 % 07/05/21 03:49 Lymph % (Auto) 9.1 % 07/05/21 03:49 [place] % (Auto) 4.5 % 07/05/21 03:49 Eos % (Auto) 0.0 % 07/05/21 03:49 Baso % (Auto) 0.3 % 07/05/21 03:49 Neut # (Auto) 16.09 10^3/uL (1.8-7.7) H 07/05/21 03:49 Lymph # (Auto) 1.8 10^3/uL (0.8-4.8) 07/05/21 03:49 [place] # (Auto) 0.9 10^3/uL (0.2-0.9) 07/05/21 03:49 Eos # (Auto) 0.0 10^3/uL (0.0-0.8) 07/05/21 03:49 Baso # (Auto) 0.1 10^3/uL (0.0-0.1) 07/05/21 03:49 Nucleated RBC % (auto) 0 % 07/05/21 03:49 Nucleated RBCs # 0.0 /100WBC 07/05/21 03:49 Specimen Type Arterial 06/30/21 10:30 Sample Site Radial, right 06/30/21 10:30 ABG pH 7.42 (7.35-7.45) 06/30/21 10:30 ABG pCO2 41.9 mmHg (35-45) 06/30/21 10:30 ABG pO2 131.0 mmHg (80.0-100.0) H 06/30/21 10:30 ABG HCO3 27.1 mmol/L (22-26) H 06/30/21 10:30 ABG Base Excess 2.3 mmol/L (-2.0-2.0) H 06/30/21 10:30 Sachin Test Pos 06/30/21 10:30 Hematocrit 48.0 % (42-52) 06/30/21 10:30 O2 Delivery Device Bipap 06/30/21 10:30 FiO2 30.0 % 06/30/21 10:30 PEEP 6.0 cmH20 06/30/21 10:30 Government Service Executive ID Rieri 06/30/21 10:30 Sodium 133 mmol/L (136-145) L 07/05/21 03:49 Potassium 4.1 mmol/L (3.5-5.1) 07/05/21 03:49 Chloride 99 mmol/L (98-107) 07/05/21 03:49 Carbon Dioxide 23 mmol/L (22-29) 07/05/21 03:49 Anion Gap 15.1 (5-19) 07/05/21 03:49 BUN 19 mg/dL (6-20) 07/05/21 03:49 Creatinine 0.7 mg/dL (0.7-1.2) 07/05/21 03:49 GFR Calculation 139.8 mL/min (90-130) H 07/05/21 03:49 Glucose 143 mg/dL (65-115) H 07/05/21 03:49 POC Glucose 144 mg/dL (70-110) H 07/02/21 22:30 Calculated Osmolality 281 mOsm/kg (285-295) L 07/05/21 03:49 Calcium 9.4 mg/dL (8.5-10.5) 07/05/21 03:49 Total Bilirubin 0.2 mg/dL (0.15-1.2) 07/05/21 03:49 AST 11 U/L (0-40) 07/05/21 03:49 ALT 10 U/L (0-41) 07/05/21 03:49 Alkaline Phosphatase 76 IU/L (40-130) 07/05/21 03:49 Total Protein 6.1 g/dL (6.6-8.7) L 07/05/21 03:49 Albumin 4.1 g/dL (3.5-5.2) 07/05/21 03:49 Globulin 2.0 g/dL (1.3-4.6) 07/05/21 03:49 Coronavirus 229E (PCR) Not detected (NOT DETECT) 07/01/21 00:01 SARS-CoV-2 (PCR) Not detected (NOT DETECT) 07/01/21 00:01 Vitals Last Vital Signs Temp 98.0 F 07/05/21 08:00 Pulse 79 07/05/21 08:00 Resp 13 07/05/21 08:00 BP 130/61 07/05/21 05:00 Pulse Ox 95 07/05/21 07:40 Discharge Plan Discharge Patient Disposition: Home Condition: Stable Prescriptions: New fluticasone propion-salmeterol [Advair Diskus] 100-50 mcg/dose blister with device 1 inh inhalation BID Qty: 60 0RF prednisone 20 mg tablet See Rx Instructions .ROUTE .COMPLEX Qty: 180 0RF Rx Instructions: prednisone 5 mg: take 8 tablets (40 mg) on Day 1-5; 7 tablets (35 mg) on Day 6-10; then decrease by 1 tablet every 5 days until finished doxycycline hyclate 100 mg tablet 100 mg PO BID 7 Days Qty: 14 0RF Continued albuterol sulfate [ProAir HFA] 90 mcg/actuation HFA aerosol inhaler 2 puff INHALATION Q4H PRN (Reason: Shortness Of Breath) 30 Days Qty: 8.5 0RF albuterol sulfate 2.5 mg /3 mL (0.083 %) solution for nebulization 2.5 mg INHALATION Q4H PRN (Reason: Shortness Of Breath) Qty: 75 0RF Discontinued Zyrtec 10 mg Tablet 10 mg PO QAM 0RF prednisone 20 mg Tablet See Rx Instructions .ROUTE .COMPLEX 0RF Rx Instructions: titrating dose Discharge Orders: Discharge Order (Routine); Ordered 07/05/21 Ordered By: Bhavik Lima Referrals: Elpidio Yadav MD [Primary Care Provider] - 1-3 days Eric Nettles MD [Physician] - 4-7 days (asthma) Discharge Diet: Regular Discharge Activity: Resume usual activity Patient Instructions: Opioid Safety Activity Restrictions/Additional Instructions: -Please monitor for shortness of breath or wheezing if so go to the emergency room -Take prednisone taper as prescribed -Take albuterol, Advair as prescribed -Follow-up with diesel stationary engineer in 1 week Discharge Attestations Time Spent in Discharge Care*: less than 30 min Quality Metrics Clinical Quality Measures [ No reported AMI, CVA or VTE this stay] Coding Level of Care Code Acute Chg FW DC note Diagnoses Status asthmaticus J45.902 Vocal cord dysfunction J38.3
--- NOTE | 2021-07-05 10:43 | PC.CHAP ---
Pastoral Care Encounter/Spiritual Assessment Type of Contact [] Declined manager entry visit [] Patient/Family/Request visit [] Outpatient visit [] Follow-up visit [] Physician referral [] Code/Alert [x] Routine visit [] Staff referral [] Actively dying [x] Patient sleeping [] Family support [] [] Out of room [] Palliative care [] [] Receiving care in room [] Pre-surgical visit [] Trauma [] Long length of stay [x] ICU visit [] Other: Relational/Emotional Strength [] Patient feels connected with others/family/visitors/staff [] Distress [] Loneliness/isolation [] Abandonment Spirituality of Patient [] Person of Maria Teresa [] Attends Zoroastrian of their Maria Teresa [] Believes in Prayer [] Reads Bible or Presybeterian materials [] There are Spiritual issues to be addressed Personal Property Assessor Interventions [x] Prayer [] Active listening [] Non-anxious presence [] Spiritual/emotional support [] Crisis/trauma care [] Spiritual counseling [] Bereavement support [] Provided bereavement packet [] Provided Bible/devotional materials [] Provided toy/stuffed animal, coloring book to patient or family member [] Provided Communion [] Anointing/[place] [] Salvation [x] Completed spiritual assessment [] Other: Impact on Illness or Injury [] Angry [] Fearful [] Anxious [] Often cries [] Exhaustion [] Unable to work [] Unable to attend bahai [] Unable to walk/stand [] Unable to read [] Unable to drive [] Unable to eat/drink [] Unable to sleep [] Unable to be with family [] Patient intubated [] Other: Summary Time spent with patient
--- NOTE | 2021-07-05 11:54 | PC.NURSE ---
PIV removed, dc instructions given. spoke with pt and then pt wheeled to ER exit to personal vehicle.
== END 2021-07-05 11:50 | disposition home or self-care (01) | DRG 203 ==
LOC: ER 23:05 → ICU 23:55
PROVIDERS: Admitting Provider Internal Medicine; Emergency Provider Emergency Medicine; PCP Family Medicine; Visit Provider Family Medicine
DX: J45.902 Unspecified asthma with status asthmaticus (principal); J38.3 Other diseases of vocal cords; E87.5 Hyperkalemia; Z79.51 Long term (current) use of inhaled steroids
CPT/HCPCS: 36415; 36416; 36600; 70360; 71045; 80048; 80053; 82803; 82962; 85025; 87040; 87077; 87150; 87186; 87205; 87635; 94640; 94645; 94660; 94664; 96365; 96375; 99291; C9113; J2060; J2920; J2930; J3475; J3490; J7611; J7626

== ENCOUNTER 2021-07-06 19:57 | Emergency (ER) | payer MEDICAID, SELFPAY ==
[2021-07-06] VITALS (8 sets, daily range): BP systolic 119–143; BP diastolic 62–95; PULSE 77–87; RESP 14–20; TEMP 36.6; O2SAT 96–100
--- NOTE | 2021-07-06 20:08 | CTR_ITS ---
PROCEDURE INFORMATION: Exam: CT Abdomen And Pelvis With Contrast Exam date and time: 07/06/2021 8:38 PM Age: 21 years old Clinical indication: Abdominal pain; Generalized; Patient HX: C/O abd pain and nausea TECHNIQUE: Imaging protocol: Computed tomography of the abdomen and pelvis with contrast. Radiation optimization: All CT scans at this facility use at least one of these dose optimization techniques: automated exposure control; mA and/or kV adjustment per patient size (includes targeted exams where dose is matched to clinical indication); or iterative reconstruction. Contrast material: OMNI 300; Contrast volume: 95 ml; Contrast route: INTRAVENOUS (IV); COMPARISON: CR (CHEST, ) 06/30/2021 8:46 PM RADIATION DOSE METRICS: Total DLP (mGy-cm): 812.27 FINDINGS: Liver: Mild hepatomegaly without cirrhosis or discrete mass. Gallbladder and bile ducts: Normal. No calcified stones. No ductal dilation. Pancreas: Normal. No ductal dilation. Spleen: Normal. No splenomegaly. Adrenal glands: Normal. No mass. Kidneys and ureters: No obstructing calculus. No hydronephrosis. Stomach and bowel: Unremarkable. No obstruction. No mucosal thickening. Appendix: Normal appendix. Intraperitoneal space: Unremarkable. No free air. No significant fluid collection. Arteries: Unremarkable. No abdominal aortic aneurysm. Lymph nodes: No enlarged lymph nodes. Urinary bladder: Unremarkable as visualized. Reproductive: Unremarkable as visualized. Bones/joints: No acute fracture. Soft tissues: No acute findings. CT/CT abdomen pelvis w con* [id number] IMPRESSION: 1. Mild hepatomegaly without cirrhosis or discrete mass. 2. Otherwise no acute abdominopelvic findings.
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
[2021-07-06] MEDS: ondansetron 2 mg/ML SDV 2 mL 4 MG IVP (20:17)
[2021-07-06] MEDS: morphine 4 mg/mL SDV 1 mL IVP (20:18)
[2021-07-06] MEDS: sodium chloride 0.9% 1,000 ML 999 ML IV (20:19)
[2021-07-06 20:29] LABS: Basophils % 0.1 %; Eosinophils # 0.3 10^3/uL (0.0-0.8); Eosinophils % 2.1 %; Hemoglobin 15.6 g/dL (11.7-16.6); Lymphocytes # 2.9 10^3/uL (0.8-4.8); Lymphocytes % 23.3 %; Mean Corpuscular HGB Conc 32.5 g/dL (30.0-36.0); Mean Corpuscular Hemoglobin 28.8 pg (28.0-34.0); Mean Corpuscular Volume 88.6 fl (80-94); Mean Platelet Volume 9.7 fL (7.4-10.4); Monocytes # 1.3 10^3/uL (0.2-0.9); Monocytes % 10.8 %; Neutrophils # 6.71 10^3/uL (1.8-7.7); Nucleated Red Blood Cells % 0 %; Platelet Count 323 10^3/cmm (130-400); Red Blood Count 5.42 10^6/uL (4.1-5.3); Red Cell Distribution Width 12.9 % (12.1-15.1); White Blood Count 12.4 10^3/uL (4.0-10.0)
[2021-07-06 20:44] LABS: Alanine Aminotransferase 15 U/L (0-41); Alkaline Phosphatase 77 IU/L (40-130); Anion Gap 12.8 (5-19); Aspartate Amino Transferase 12 U/L (0-40); Blood Urea Nitrogen 20 mg/dL (6-20); Calcium 8.8 mg/dL (8.5-10.5); Carbon Dioxide 30 mmol/L (22-29); Chloride 101 mmol/L (98-107); Globulin 2.9 g/dL (1.3-4.6); Glomerular Filtration Rate 119.8 mL/min (90-130); Glucose 102 mg/dL (65-115); Lipase 44 U/L (13-60); Osmolality Calculated 293 mOsm/kg (285-295); Potassium 3.8 mmol/L (3.5-5.1); Sodium 140 mmol/L (136-145); Total Bilirubin 0.3 mg/dL (0.15-1.2); Total Protein 6.9 g/dL (6.6-8.7)
[2021-07-06] MEDS: iohexol 300 mg/mL 100 mL Btl IV (20:45)
[2021-07-06 20:55] LABS: Slide Review Slide Review Perform
[2021-07-06] MEDS: ipratropium-albuterol 3 mL Neb INHALATION (21:43)
[2021-07-06] MEDS: albuterol 8 gm MDI 2 PUFF INHALATION (22:11)
[2021-07-07 12:32] LABS: Glucose Point of Care 92 mg/dL (70-110)
== END 2021-07-06 22:18 | disposition home or self-care (01) ==
PROVIDERS: Emergency Provider Emergency Medicine; PCP Family Medicine
DX: R10.84 Generalized abdominal pain (principal); R11.10 Vomiting, unspecified
CPT/HCPCS: 36416; 74177; 80053; 82962; 83690; 85025; 94640; 96361; 96374; 96375; 99284; J2270; J2405; J3535; J7030; Q9967

== ENCOUNTER 2022-02-18 18:07 | Emergency (ER) | payer MEDICAID, SELFPAY ==
[2022-02-18 18:12] VITALS: BP 114/64; PULSE 111; RESP 18; TEMP 36.8; O2SAT 98
--- NOTE | 2022-02-18 18:20 | W.ED.ASTHMA ---
HPI - Asthma General: Chief Complaint: Asthma Stated Complaint: asthma attack Time Seen by Provider: 02/18/22 18:19 History of Present Illness: 21-year-old male patient comes in for worsening asthma symptoms. Patient has a long history of asthma in which she has had to use inhaled and oral steroids in the past. Patient reports running out of his albuterol inhaler today. Patient is in moderate distress. Patient speaks in short sentences. Patient has tripoding. Last albuterol was 30 minutes ago. Associated symptoms: Deny fever(s) Review of Systems Const: Denies: fever(s) Resp: Reports: dyspnea and wheezing GI: Denies: nausea or vomiting Skin/Breast: Denies: rash PFSH ED PFSH: Medical History Asthma Laryngopharyngeal reflux Vocal cord dysfunction Surgical History H/O rhinoplasty Family History Mother Asthma Father Asthma Social History Smoking and tobacco status: never smoked Alcohol intake: never Lives independently: Yes Marital status: Single Current occupational status: employed Physical Exam Const: COMMON NORMALS: alert HENMT: COMMON NORMALS: normocephalic HEAD & SCALP: normocephalic Neck/C-Spine: COMMON NORMALS: full ROM Resp: EFFORT & INSPECTION: Yes respiratory distress, Yes uses accessory muscles and Yes tripod positioning AUSCULTATION: wheezes and diminished lung sounds Cardio: COMMON NORMALS: regular rhythm RATE: tachycardic RHYTHM: regular rhythm GI: AUSCULTATION: Yes normoactive bowel sounds PALPATION: No Tenderness to palpation present (GI) Extremity: COMMON NORMALS: no pedal edema Neuro: SENSORIUM/ORIENTATION: Yes alert Skin: COMMON NORMALS: turgor normal GENERAL SKIN EXAM: turgor normal Course ED course: 1919, patient has had significant improvement after medications and nebulizer treatment. Will start patient on a new ProAir inhaler, continue on prednisone, and refills of medications as needed. Vital Signs: Vital signs: Vital Signs Temperature 98.2 F 02/18/22 18:12 Pulse Rate 111 H 02/18/22 19:30 Respiratory Rate 18 02/18/22 19:30 Blood Pressure 130/80 02/18/22 19:14 Pulse Oximetry 97 02/18/22 19:30 Oxygen Delivery Me thod 02/18/22 19:30 MDM - Asthma Medical Decision Making 21-year-old male comes in today for complaints of exacerbation of asthma. On exam patient has diminished lung sounds with wheezing on inspiration and expiration. Patient has short 3 word sentences and tripoding. Patient appears in moderate distress. Differential diagnosis includes but not limited to acute exacerbation of asthma, status asthmaticus, pneumonia. Chest x-ray was unremarkable. CBC had a white count of 10,000. CMP was unremarkable. Patient was treated with DuoNeb and albuterol along with 2 g of mag sulfate and 1 L of IV fluids. Chest x-ray noted no pneumonia. Patient was continued with prescriptions of prednisone and albuterol for home. Lab Data 02/18/22 18:35 02/18/22 18:35 Radiology Impressions Chest X-Ray 02/18/22 18:23 IMPRESSION: No acute findings. Laboratory Results WBC 10.6 10^3/uL (4.0-10.0) H 02/18/22 18:35 RBC 5.35 10^6/uL (4.1-5.3) H 02/18/22 18:35 Hgb 15.6 g/dL (11.7-16.6) 02/18/22 18:35 Hct 47.5 % (42.0-52.0) 02/18/22 18:35 MCV 88.8 fl (80-94) 02/18/22 18:35 MCH 29.2 pg (28.0-34.0) 02/18/22 18:35 MCHC 32.8 g/dL (30.0-36.0) 02/18/22 18:35 RDW 12.3 % (12.1-15.1) 02/18/22 18:35 Plt Count 399 10^3/cmm (130-400) 02/18/22 18:35 MPV 9.7 fL (7.4-10.4) 02/18/22 18:35 Neut % (Auto) 79.4 % 02/18/22 18:35 Lymph % (Auto) 12.3 % 02/18/22 18:35 Bremer % (Auto) 4.2 % 02/18/22 18:35 Eos % (Auto) 3.0 % 02/18/22 18:35 Baso % (Auto) 0.8 % 02/18/22 18:35 Neut # (Auto) 8.40 10^3/uL (1.8-7.7) H 02/18/22 18:35 Lymph # (Auto) 1.3 10^3/uL (0.8-4.8) 02/18/22 18:35 Bremer # (Auto) 0.4 10^3/uL (0.2-0.9) 02/18/22 18:35 Eos # (Auto) 0.3 10^3/uL (0.0-0.8) 02/18/22 18:35 Baso # (Auto) 0.1 10^3/uL (0.0-0.1) 02/18/22 18:35 Nucleated RBC % (auto) 0 % 02/18/22 18:35 Nucleated RBCs # 0.0 /100WBC 02/18/22 18:35 Sodium 138 mmol/L (136-145) 02/18/22 18:35 Potassium 4.1 mmol/L (3.5-5.1) 02/18/22 18:35 Chloride 103 mmol/L (98-107) 02/18/22 18:35 Carbon Dioxide 25 mmol/L (22-29) 02/18/22 18:35 Anion Gap 14.1 (5-19) 02/18/22 18:35 BUN 9 mg/dL (6-20) 02/18/22 18:35 Creatinine 0.9 mg/dL (0.7-1.2) 02/18/22 18:35 GFR Calculation 104.6 mL/min (90-130) 02/18/22 18:35 Glucose 90 mg/dL (65-115) 02/18/22 18:35 Calculated Osmolality 284 mOsm/kg (285-295) L 02/18/22 18:35 Calcium 9.7 mg/dL (8.5-10.5) 02/18/22 18:35 Total Bilirubin 0.6 mg/dL (0.15-1.2) 02/18/22 18:35 AST 12 U/L (0-40) 02/18/22 18:35 ALT 9 U/L (0-41) 02/18/22 18:35 Alkaline Phosphatase 76 U/L (40-130) 02/18/22 18:35 Total Protein 7.2 g/dL (6.6-8.7) 02/18/22 18:35 Albumin 4.4 g/dL (3.5-5.2) 02/18/22 18:35 Globulin 2.8 g/dL (1.3-4.6) 02/18/22 18:35 Critical Care Time Critical Care Time: Critical Care Time: Yes Total Critical Care Time: 30 Attestation: Patient was in respiratory distress was repeatedly evaluated and monitored for 30 minutes until stabilization. Discharge Plan Discharge Patient Disposition: Home Clinical Impression: Asthma with acute exacerbation Qualifiers: Asthma severity: unspecified severity Asthma persistence: persistent Qualified Code(s): J45.901 - Unspecified asthma with (acute) exacerbation Condition: Stable Prescriptions: New prednisone 20 mg tablet 20 mg PO BID 7 Days Qty: 14 0RF Continued albuterol sulfate 2.5 mg /3 mL (0.083 %) solution for nebulization 2.5 mg INHALATION Q4H PRN (Reason: Shortness Of Breath) Qty: 75 0RF ProAir HFA 90 mcg/actuation HFA aerosol inhaler 2 puff INHALATION Q4H PRN (Reason: Shortness Of Breath) 30 Days Qty: 8.5 0RF Discontinued prednisone 20 mg tablet See Rx Instructions .ROUTE .COMPLEX Qty: 180 0RF Rx Instructions: prednisone 5 mg: take 8 tablets (40 mg) on Day 1-5; 7 tablets (35 mg) on Day 6-10; then decrease by 1 tablet every 5 days until finished No Action Flovent HFA 220 mcg/actuation HFA aerosol inhaler 1 inh inhalation BID Qty: 12 0RF ProAir HFA 90 mcg/actuation HFA aerosol inhaler 1 inh inhalation Q6H PRN (Reason: shortness of breath or wheezing) Qty: 8.5 3RF ProAir HFA 90 mcg/actuation HFA aerosol inhaler 1 inh inhalation Q6H PRN (Reason: shortness of breath or wheezing) Qty: 8.5 3RF ondansetron 4 mg tablet,disintegrating 4 mg PO Q6H PRN (Reason: nausea and vomiting) Qty: 14 0RF Discharge Orders: Discharge ED (Routine); Ordered 02/18/22 Ordered By: Kyle Khan Referrals: Elpidio Yadav MD [Primary Care Provider] - Discharge Diet: Usual diet Discharge Activity: Increase activity as tolerated Patient Instructions: Asthma (ED) Activity Restrictions/Additional Instructions: Home and rest. Drink plenty of fluids. Continue with medications as directed. Use steroid prednisone 20 mg twice a day for the next 7 days. Continue with albuterol inhaler and nebulizer as prescribed. Follow-up with primary care in 1 week for recheck. Return to ER for worsening symptoms such as high fever greater than 100.4, increasing shortness of breath, or new concerns. Coding Level of Care Code ED Medicare Interviewer for Milagro Fwd Exam Comprehensive
--- NOTE | 2022-02-18 18:23 | XRR_ITS ---
PROCEDURE INFORMATION: Exam: XR Chest Exam date and time: 02/18/2022 7:30 PM Age: 21 years old Clinical indication: Shortness of breath; Additional info: Asthma TECHNIQUE: Imaging protocol: Radiologic exam of the chest. Views: 1 view. COMPARISON: CR XR chest 1V portable [id number] 06/30/2021 8:46 PM FINDINGS: Lungs: Unremarkable. No consolidation. Pleural spaces: Unremarkable. No pleural effusion. No pneumothorax. Heart/Mediastinum: Unremarkable. No cardiomegaly. Bones/joints: No acute findings. XR/XR chest 1V portable [id number] IMPRESSION: No acute findings.
[2022-02-18 18:44] VITALS: BP 143/80; PULSE 94; O2SAT 94
[2022-02-18] MEDS: ipratropium-albuterol 3 mL Neb INHALATION (18:47)
[2022-02-18 18:48] VITALS: PULSE 89; RESP 20; O2SAT 99
[2022-02-18 18:52] LABS: Basophils # 0.1 10^3/uL (0.0-0.1); Basophils % 0.8 %; Eosinophils # 0.3 10^3/uL (0.0-0.8); Hematocrit 47.5 % (42.0-52.0); Hemoglobin 15.6 g/dL (11.7-16.6); Lymphocytes # 1.3 10^3/uL (0.8-4.8); Lymphocytes % 12.3 %; Mean Corpuscular HGB Conc 32.8 g/dL (30.0-36.0); Mean Corpuscular Hemoglobin 29.2 pg (28.0-34.0); Mean Corpuscular Volume 88.8 fl (80-94); Mean Platelet Volume 9.7 fL (7.4-10.4); Monocytes # 0.4 10^3/uL (0.2-0.9); Monocytes % 4.2 %; Neutrophils % 79.4 %; Nucleated Red Blood Cells % 0 %; Platelet Count 399 10^3/cmm (130-400); Red Blood Count 5.35 10^6/uL (4.1-5.3); Red Cell Distribution Width 12.3 % (12.1-15.1); White Blood Count 10.6 10^3/uL (4.0-10.0)
[2022-02-18] MEDS: sodium chloride 0.9% 1,000 ML 999 ML IV (18:53)
[2022-02-18] MEDS: magnesium sulfate premix 2 GM/50 ML PIGGYBACK IV (18:55)
[2022-02-18] MEDS: dexamethasone 10 mg/mL INJ IM (18:55)
[2022-02-18 19:03] LABS: Alanine Aminotransferase 9 U/L (0-41); Albumin Level 4.4 g/dL (3.5-5.2); Alkaline Phosphatase 76 U/L (40-130); Anion Gap 14.1 (5-19); Aspartate Amino Transferase 12 U/L (0-40); Blood Urea Nitrogen 9 mg/dL (6-20); Calcium 9.7 mg/dL (8.5-10.5); Carbon Dioxide 25 mmol/L (22-29); Chloride 103 mmol/L (98-107); Creatinine Clr Calc Pharmacy 114.8507; Globulin 2.8 g/dL (1.3-4.6); Glomerular Filtration Rate 104.6 mL/min (90-130); Glucose 90 mg/dL (65-115); Osmolality Calculated 284 mOsm/kg (285-295); Potassium 4.1 mmol/L (3.5-5.1); Sodium 138 mmol/L (136-145); Total Bilirubin 0.6 mg/dL (0.15-1.2); Total Protein 7.2 g/dL (6.6-8.7)
[2022-02-18 19:14] VITALS: BP 130/80; PULSE 93; O2SAT 97
[2022-02-18 19:30] VITALS: PULSE 111; RESP 18; O2SAT 97
[2022-02-18] MEDS: albuterol 8 gm MDI 2 PUFF INHALATION (19:30)
== END 2022-02-18 20:05 | disposition home or self-care (01) ==
PROVIDERS: Emergency Provider Nurse Practitioner Family; PCP Family Medicine
DX: J45.901 Unspecified asthma with (acute) exacerbation (principal)
CPT/HCPCS: 71045; 80053; 85025; 94640; 96365; 96372; 96375; 99285; J1100; J2930; J3475; J3535; J7030

== ENCOUNTER 2023-09-10 20:18 | Inpatient (IN) | payer MEDICAID, SELFPAY ==
[2023-09-10] VITALS (12 sets, daily range): BP systolic 105–141; BP diastolic 67–89; PULSE 130–172; RESP 23–65; O2SAT 98–100; BMI 21.9
[2023-09-10] MEDS: albuterol 2.5 mg/3 mL Neb 10 MG INHALATION (20:35)
--- NOTE | 2023-09-10 20:39 | XRR_ITS ---
PROCEDURE INFORMATION: Exam: XR Chest Exam date and time: 09/10/2023 9:42 PM Age: 23 years old Clinical indication: Shortness of breath and other: Asthma; Additional info: SOB TECHNIQUE: Imaging protocol: Radiologic exam of the chest. Views: 1 view. COMPARISON: CR XR chest 1V portable [id number] 02/18/2022 7:30 PM FINDINGS: Lungs: The lungs are clear. No pulmonary consolidation. Pleural spaces: No pleural effusion or pneumothorax. Heart/Mediastinum: The cardiomediastinal silhouette is within normal limits. Bones/joints: No acute osseous abnormalities are seen. XR/XR chest 1V portable [id number] IMPRESSION: No acute cardiopulmonary disease.
[2023-09-10 20:44] LABS: ABG PCO2 35.5 mmHg (35-45); ABG PH Result 7.47 (7.35-7.45); Arterial Blood Gas Hematocrit 50.6 % (42-52); Base Excess ABG 2.6 mmol/L (-2.0-2.0); Blood Gas Allen Test Pos; Blood Gas Sample Site Radial, right; Blood Gas Sample Type Arterial; Carboxyhemoglobin 0.7 %THgb (0.4-20.1); HCO3 ABG 25.9 mmol/L (22-26); HGB O2 Sat 99.3 % (95-100); Methemoglobin 0.7 % (0.4-1.5); Oxygen Device BIPAP; PO2 FiO2 Ratio Arterial Blood 0; Total Hemoglobin 16.5 g/dL (14-18)
[2023-09-10] MEDS: sodium chloride 0.9% 500 ML 999 ML IV (20:47)
[2023-09-10] MEDS: dexamethasone 10 mg/mL INJ IVP (20:47)
[2023-09-10 20:49] LABS: Basophils # 0.1 10^3/uL (0.0-0.1); Basophils % 0.8 %; Eosinophils # 0.2 10^3/uL (0.0-0.8); Hematocrit 47.9 % (37-53); Lymphocytes # 2.9 10^3/uL (0.8-4.8); Lymphocytes % 33.4 %; Mean Corpuscular HGB Conc 34.7 g/dL (30-55); Mean Corpuscular Hemoglobin 29.3 pg (27-33); Mean Corpuscular Volume 84.5 fl (82-101); Mean Platelet Volume 9.6 fL (7.4-10.4); Monocytes # 0.6 10^3/uL (0.2-0.9); Monocytes % 7.4 %; Neutrophils # 4.88 10^3/uL (1.8-7.7); Neutrophils % 56.1 %; Nucleated Red Blood Cells % 0 %; Platelet Count 353 10^3/cmm (157-399); Red Blood Count 5.67 10^6/uL (3.85-5.65)
[2023-09-10] MEDS: magnesium sulfate premix 2 GM/50 ML PIGGYBACK IV (20:53)
--- NOTE | 2023-09-10 20:53 | W.ED.SOB ---
HPI - SOB/Dyspnea General: Chief Complaint: Shortness of Breath/Dyspnea Stated Complaint: Sob, asthma Time Seen by Provider: 09/10/23 20:29 History of Present Illness: HPI Narrative: 23-year-old male presents by EMS from retirement presents the ER chief complaint acute respiratory distress patient was initiated on BiPAP appears to have an asthma exacerbation. Patient does have a history of brittle asthma requiring intubation in the past as well as admission per EMS patient was provided couple neb treatments and steroids prior to arrival in which due to patient progressively declined he was initiated on BiPAP patient does not endorse any chest pain with the shortness of breath does report some mild palpitations patient did not remark any recent infections or illnesses or any associated symptoms. [facility] ED PFSH: Medical History Asthma Laryngopharyngeal reflux Vocal cord dysfunction Surgical History H/O rhinoplasty Family History Mother Asthma Father Asthma Social History Smoking and tobacco/nicotine status: never used tobacco/nicotine Alcohol intake: never Lives independently: Yes Marital status: Single Current occupational status: employed Course Vital Signs: Vital signs: Vital Signs Pulse Rate 155 H 09/10/23 21:50 Respiratory Rate 38 H 09/10/23 21:45 Blood Pressure 138/86 09/10/23 21:45 Pulse Oximetry 99 09/10/23 21:50 Oxygen Delivery Me thod BiPAP 09/10/23 20:35 Fraction of Inspir ed Oxygen 50 09/10/23 21:50 MDM - SOB/Dyspnea Medical Decision Making Due to patient's symptoms and condition lab work and imaging was obtained underlying concerns acute asthma exacerbation versus pneumonia versus others prominent chest x-ray looks unremarkable he is diffusely wheezing on exam. Will continue to follow discussed patient's case with Dr. Weldon is going excepted to the ICU patient was found to be progressively tachycardic with a shortness of breath however not reporting any obvious chest pain with this we will be obtaining a basic cardiac workup on this patient as well patient will be admitted to the unit for further assessment and management Lab Data 09/10/23 20:41 09/10/23 20:41 Labs/Radiology: Radiology Impressions Chest X-Ray 09/10/23 20:39 IMPRESSION: No acute cardiopulmonary disease. Laboratory Results WBC 8.70 10^3/uL (3.29-11.43) 09/10/23 20:41 RBC 5.67 10^6/uL (3.85-5.65) H 09/10/23 20:41 Hgb 16.60 g/dL (11.27-16.99) 09/10/23 20:41 Hct 47.9 % (37-53) 09/10/23 20:41 MCV 84.5 fl (82-101) 09/10/23 20:41 MCH 29.3 pg (27-33) 09/10/23 20:41 MCHC 34.7 g/dL (30-55) 09/10/23 20:41 RDW 12.0 % (12.1-15.1) L 09/10/23 20:41 Plt Count 353 10^3/cmm (157-399) 09/10/23 20:41 MPV 9.6 fL (7.4-10.4) 09/10/23 20:41 Neut % (Auto) 56.1 % 09/10/23 20:41 Lymph % (Auto) 33.4 % 09/10/23 20:41 Mathews % (Auto) 7.4 % 09/10/23 20:41 Eos % (Auto) 2.0 % 09/10/23 20:41 Baso % (Auto) 0.8 % 09/10/23 20:41 Neut # (Auto) 4.88 10^3/uL (1.8-7.7) 09/10/23 20:41 Lymph # (Auto) 2.9 10^3/uL (0.8-4.8) 09/10/23 20:41 Mathews # (Auto) 0.6 10^3/uL (0.2-0.9) 09/10/23 20:41 Eos # (Auto) 0.2 10^3/uL (0.0-0.8) 09/10/23 20:41 Baso # (Auto) 0.1 10^3/uL (0.0-0.1) 09/10/23 20:41 Nucleated RBC % (auto) 0 % 09/10/23 20:41 Nucleated RBCs # 0.0 /100WBC 09/10/23 20:41 Specimen Type Arterial 09/10/23 20:33 Sample Site Radial, right 09/10/23 20:33 ABG pH 7.47 (7.35-7.45) H 09/10/23 20:33 ABG pCO2 35.5 mmHg (35-45) 09/10/23 20:33 ABG pO2 320.0 mmHg (80.0-100.0) H 09/10/23 20:33 ABG PO2/FiO2 Ratio 0 09/10/23 20:33 ABG HCO3 25.9 mmol/L (22-26) 09/10/23 20:33 ABG Base Excess 2.6 mmol/L (-2.0-2.0) H 09/10/23 20:33 Sachin Test Pos 09/10/23 20:33 Hematocrit 50.6 % (42-52) 09/10/23 20:33 Hgb O2 Saturation 99.3 % (95-100) 09/10/23 20:33 Carboxyhemoglobin 0.7 %THgb (0.4-20.1) 09/10/23 20:33 Methemoglobin 0.7 % (0.4-1.5) 09/10/23 20:33 Total Hemoglobin 16.5 g/dL (14-18) 09/10/23 20:33 O2 Delivery Device Bipap 09/10/23 20:33 FiO2 60.0 % 09/10/23 20:33 Vacuum Drier Operator ID [email or web address] 09/10/23 20:33 Sodium 139 mmol/L (136-145) 09/10/23 20:41 Potassium 3.8 mmol/L (3.5-5.1) 09/10/23 20:41 Chloride 103 mmol/L (98-107) 09/10/23 20:41 Carbon Dioxide 26 mmol/L (22-29) 09/10/23 20:41 Anion Gap 13.8 (5-19) 09/10/23 20:41 BUN 12 mg/dL (6-20) 09/10/23 20:41 Creatinine 0.8 mg/dL (0.7-1.2) 09/10/23 20:41 GFR Calculation 117.8 mL/min (90-130) 09/10/23 20:41 Glucose 113 mg/dL (65-115) 09/10/23 20:41 Calculated Osmolality 289 mOsm/kg (285-295) 09/10/23 20:41 Lactic Acid 2.1 mmol/L (0.5-2.2) 09/10/23 20:41 Calcium 9.7 mg/dL (8.5-10.5) 09/10/23 20:41 Magnesium 2.2 mg/dL (1.7-2.3) 09/10/23 20:41 Total Bilirubin 0.2 mg/dL (0.15-1.2) 09/10/23 20:41 AST 12 U/L (0-40) 09/10/23 20:41 ALT 11 U/L (0-41) 09/10/23 20:41 Alkaline Phosphatase 69 U/L (40-130) 09/10/23 20:41 Total Protein 7.6 g/dL (6.6-8.7) 09/10/23 20:41 Albumin 4.9 g/dL (3.5-5.2) 09/10/23 20:41 Globulin 2.7 g/dL (1.3-4.6) 09/10/23 20:41 XR interpretation done by ED provider, pending radiology final review Discharge Plan Discharge Patient Disposition: Admitted As Inpatient Clinical Impression: Asthma with exacerbation Condition: Stable Prescriptions: No Action Flovent HFA 220 mcg/actuation HFA aerosol inhaler 1 inh inhalation BID Qty: 12 0RF ProAir HFA 90 mcg/actuation HFA aerosol inhaler 1 inh inhalation Q6H PRN (Reason: shortness of breath or wheezing) Qty: 8.5 3RF ProAir HFA 90 mcg/actuation HFA aerosol inhaler 1 inh inhalation Q6H PRN (Reason: shortness of breath or wheezing) Qty: 8.5 3RF ondansetron 4 mg tablet,disintegrating 4 mg PO Q6H PRN (Reason: nausea and vomiting) Qty: 14 0RF albuterol sulfate 2.5 mg /3 mL (0.083 %) solution for nebulization 2.5 mg INHALATION Q4H PRN (Reason: Shortness Of Breath) Qty: 75 0RF ProAir HFA 90 mcg/actuation HFA aerosol inhaler 2 puff INHALATION Q4H PRN (Reason: Shortness Of Breath) 30 Days Qty: 8.5 0RF Referrals: Elpidio Yadav MD [Primary Care Provider] - Coding Level of Care Code ED Economics Lecturer for Milagro Alberto
[2023-09-10] MEDS: ondansetron 2 mg/ML SDV 2 mL 4 MG IVP (21:01)
[2023-09-10 21:05] LABS: Lactic Sepsis W/Reflex 2.1 mmol/L (0.5-2.2)
[2023-09-10 21:06] LABS: Alanine Aminotransferase 11 U/L (0-41); Albumin Level 4.9 g/dL (3.5-5.2); Alkaline Phosphatase 69 U/L (40-130); Anion Gap 13.8 (5-19); Aspartate Amino Transferase 12 U/L (0-40); Blood Urea Nitrogen 12 mg/dL (6-20); Calcium 9.7 mg/dL (8.5-10.5); Carbon Dioxide 26 mmol/L (22-29); Chloride 103 mmol/L (98-107); Creatinine Clr Calc Pharmacy 129.8965; Globulin 2.7 g/dL (1.3-4.6); Glomerular Filtration Rate 117.8 mL/min (90-130); Glucose 113 mg/dL (65-115); Magnesium 2.2 mg/dL (1.7-2.3); Osmolality Calculated 289 mOsm/kg (285-295); Potassium 3.8 mmol/L (3.5-5.1); Sodium 139 mmol/L (136-145); Total Bilirubin 0.2 mg/dL (0.15-1.2); Total Protein 7.6 g/dL (6.6-8.7)
[2023-09-10] MEDS: LORazepam 2 mg/mL INJ 10 mL MDV 1 MG IVP (21:09)
[2023-09-10] MEDS: ipratropium-albuterol 3 mL Neb INHALATION (21:25)
[2023-09-10] MEDS: ipratropium-albuterol 3 mL Neb 9 ML INHALATION (21:30)
[2023-09-10] MEDS: ketamine 100 mg/mL Inj 5 mL 31 MG IVP (21:30)
[2023-09-10 22:31] LABS: Reflex Lactate Order REFLEX LACTIC ORDERD
--- NOTE | 2023-09-10 22:38 | CTR_ITS ---
PROCEDURE INFORMATION: Exam: CTA Chest With Contrast Exam date and time: 09/10/2023 11:43 PM Age: 23 years old Clinical indication: Dyspnea TECHNIQUE: Imaging protocol: Computed tomographic angiography of the chest with contrast. Exam focused on the arteries. 3D rendering (Not supervised by radiologist): MIP and/or 3D reconstructed images were created by the technologist. Radiation optimization: All CT scans at this facility use at least one of these dose optimization techniques: automated exposure control; mA and/or kV adjustment per patient size (includes targeted exams where dose is matched to clinical indication); or iterative reconstruction. Contrast material: OMNI 350; Contrast volume: 60 ml; Contrast route: INTRAVENOUS (IV); COMPARISON: CR (CHEST, ) 09/10/2023 9:42 PM RADIATION DOSE METRICS: Total DLP (mGy-cm): 279 FINDINGS: Limitations: Breathing artifact markedly limits evaluation of the pulmonary arteries. Pulmonary arteries: The main pulmonary arteries are adequately visualized and there is no central pulmonary artery embolism. Lobar branches are seen in some cases. Segmental branches are not adequately seen. No definitive evidence of filling defect to suggest pulmonary artery embolism. The main pulmonary artery is normal in size. There is no evidence of right heart strain. Aorta: The aorta is normal in course and caliber. No significant atherosclerotic calcifications are present. Lungs: No pulmonary consolidation or pulmonary infarct. Evaluation for pulmonary nodules limited by breathing artifact. No pulmonary mass or pulmonary nodule identified. Pleural spaces: No pleural effusion or pneumothorax. Heart: Heart size is within normal limits. There is no pericardial effusion or pericardial thickening. Coronary arteries: No coronary artery calcification. Lymph nodes: There are no enlarged mediastinal, axillary, or hilar lymph nodes identified. Bones/joints: No acute osseous abnormalities are seen. Soft tissues: The soft tissues are within normal limits. CT/CT angio chest PE protcl [id number] IMPRESSION: 1. No evidence of pulmonary embolism. 2. No acute cardiopulmonary disease.
[2023-09-10] MEDS: ketamine 100 mg/mL Inj 5 mL 63.5 MG IV (23:14)
[2023-09-10 23:19] LABS: Troponin(5th) Baseline < 6 ng/L (0-15)
--- NOTE | 2023-09-10 23:32 | ECG_ITS ---
[facility] Test Date: 2023-09-10 Pat Name: Milan Christine Department: Room: ICU03 Gender: Male Lock Master: : 2000 Requested By: Nuvia Angelo Order Number: [id number] Sera MD: Mynor Gaines M.D. Measurements Intervals [place] Rate: 144 P: 79 CO: 120 QRS: 89 QRSD: 86 T: 67 QT: 304 QTc: 471 Interpretive Statements SINUS TACHYCARDIA, POSSIBLE ATRIAL FLUTTER POSSIBLE RIGHT VENTRICULAR CONDUCTION DELAY [RSR (QR) IN V1/V2] ABNORMAL RHYTHM ECG No previous ECG available for comparison Electronically Signed On 09-11-2023 18:58:34 CDT by Mynor Gaines M.D. [email or web address] Groupmethodist olive branch hospitalRootlessmercer county community hospital.Virtual Paper/store/Ov/[id number]
--- NOTE | 2023-09-10 23:32 | P.HP_ITS ---
Providers/Chief Complaint 2 Admitting Physician: Nuvia Angelo MD Primary Care Provider: Elpidio Yadav MD Chief Complaint: Sob, asthma History of Present Illness Milan Christine is a 23 year old male with a past medical history of asthma diagnosed at the age of 1, history of recurrent exacerbations needing intubation and ECMO in the past, vocal cord dysfunction, sleep apnea, uses CPAP nightly. He presents to the emergency room today in acute respiratory distress. Patient states he typically uses Advair 500/50, rescue ProAir inhaler, cetirizine and Flonase daily for his asthma. He has also recently been started on Xolair by his occupational therapy department chair in [place]. He has only received 1-2 doses thus far. He has been in police custody for about 2 weeks now and has only been using his ProAir rescue inhaler recently. He has not followed up with his primary care provider recently and has been out of refills for Advair and other medications. He was brought to the ER in respiratory distress via EMS. He received several nebulization treatment and steroids prior to arrival, however had progressively continued to decline therefore was initiated on BiPAP. Since arrival into the emergency room he received nebulization with albuterol 10 mg, dexamethasone 10 mg IV, ketamine, Ativan, magnesium 2 g and remained on BiPAP. At the time of my assessment patient is feeling better. He was initially tachypneic on arrival with a respiratory rate of 65, currently this is improved to 20. He is able to talk to me in complete sentences at this time. He is currently on room air, will be going back on BiPAP soon to sleep. Patient also has a history of vocal cord dysfunction, however states that he is typically able to tell when he has a laryngospasm, today this felt different. States that his laryngospasm is precipitated usually by stress and anxiety. He has previously tested negative for cystic fibrosis. He is noted to be tachycardic, heart rate currently ranging 120s, sinus tachycardia. Patient states that typically with his asthma flares, he has had heart rate as high as 1 50-1 60 in the past. He denies any current palpitations or chest pain. Denies any fever chills URI symptoms. Review of Systems 2 General: Reports: 10 or more systems reviewed and unremarkable except in HPI and below Const: Denies: fever(s), chills or body aches Eyes: Denies: change in vision, blurry vision or photophobia ENMT: Reports: hoarseness; Denies: throat pain, enlarged tonsils, odynophagia or nasal congestion Card: Denies: chest pain, palpitations, irregular heart rhythm, edema, swelling of feet/ankles, lightheadedness, pre-syncope, dyspnea on exertion or orthopnea Resp: Denies: dyspnea, productive cough, non-productive cough, wheezing, stridor, pain on inspiration, change in phlegm color, hemoptysis or chest congestion GI: Denies: abdominal pain, nausea, vomiting, hematemesis, coffee ground emesis, dysphagia, heartburn, diarrhea, constipation, GI cramping, change in stool character, hematochezia or melena : Denies: flank pain, dysuria, urinary frequency, urinary urgency, urinary hesitancy or hematuria Musc: Denies: neck pain, back pain, extremity pain, joint swelling, joint warmth or deformity Neuro: Denies: headache(s), numbness in extremities, weakness in extremities, sensory changes, difficulty walking, frequent falls, dizziness, vertigo, behavioral changes, Slurred speech present or seizure-like activity Psych: Denies: anxiety, depression, suicidal ideation or homicidal ideation Endo: Denies: polyuria, polydipsia, tired all the time, cold intolerance or hot flashes Raphael/Lymph: Denies: easy bruising or easy bleeding Medications/Allergies Home Medications Medication Instructions Recorded Confirmed Last Taken Type fluticasone propionate 220 1 inh inhalation BID #12 grams 07/05/21 Unknown Rx mcg/actuation HFA aerosol inhaler (Flovent HFA) ondansetron 4 mg disintegrating 4 mg PO Q6H PRN nausea and 07/06/21 Unknown Rx tablet vomiting #14 tabs albuterol sulfate 90 mcg/actuation 1 inh inhalation Q6H PRN shortness 07/14/21 Unknown Rx aerosol inhaler (ProAir HFA) of breath or wheezing #8.5 grams albuterol sulfate 2.5 mg/3 mL 2.5 mg (3 mL) inhalation Q4H PRN 02/18/22 Unknown Rx (0.083 %) solution for nebulization Shortness Of Breath #75 mL albuterol sulfate 90 mcg/actuation 2 puff inhalation Q4H PRN 02/18/22 Unknown Rx aerosol inhaler (ProAir HFA) Shortness Of Breath 30 days #8.5 grams albuterol sulfate 90 mcg/actuation 1 inh inhalation Q6H PRN shortness 09/11/23 Unknown Rx aerosol inhaler (ProAir HFA) of breath or wheezing #8.5 grams cetirizine 10 mg tablet 10 mg PO DAILY PRN allergy 09/11/23 Unknown Rx symptoms 30 days #30 tabs fluticasone 500 mcg-salmeterol 50 1 inh inhalation BID 60 days #60 ea 09/11/23 Unknown Rx mcg/dose blistr powdr for inhalation (Advair Diskus) fluticasone propionate 50 1 spray intranasal DAILY PRN 09/11/23 Unknown Rx mcg/actuation nasal allergy symptoms #16 grams spray,suspension (Flonase Allergy Relief) omeprazole 20 mg capsule,delayed 20 mg PO DAILY 4 weeks #30 caps 09/11/23 Unknown Rx release Allergies Allergy/AdvReac Type Severity Reaction Status Date / Time codeine AdvReac ADR-Halluci Verified 06/30/21 21:52 nating PFSH Acute 2 PFSH: Medical History Vocal cord dysfunction Asthma Laryngopharyngeal reflux Surgical History H/O rhinoplasty Family History Mother Asthma Father Asthma Social History Smoking and tobacco/nicotine status: never used tobacco/nicotine Alcohol intake: never Lives independently: Yes Marital status: Single Current occupational status: employed Vitals/I&O/Wt Last Vital Signs Pulse 146 H 09/10/23 23:15 Resp 26 H 09/10/23 23:15 BP 122/67 09/10/23 23:15 Pulse Ox 99 09/10/23 23:15 O2 Del Method BiPAP 09/10/23 20:35 FiO2 50 09/10/23 21:50 09/10/23 09/10/23 09/11/23 14:59 22:59 06:59 Intake Total 500 / 500 50 / 550 Balance 500 / 500 50 / 550 Weight last 48 hrs Weight 63.503 kg Physical Exam 2 Narrative: General: No acute distress, AO x3 HEENT: PERRLA, pupils bilaterally equal and reactive, pallors not present Chest: Expiratory wheezing to auscultation all areas. CVS: S1-S2 regular, no murmurs, no tachycardia, no gallops, no rubs Abdomen: Soft, nontender, no organomegaly, bowel sounds present Neuro: No focal deficits, no facial deformity, AO x3, power 5/5 in all limbs Extremities: Healthy surgical dressing present on the right hip, mild tenderness, soft no erythema. Data 09/10/23 20:41 09/10/23 20:41 Other data: Radiology Impressions Chest X-Ray 09/10/23 20:39 IMPRESSION: No acute cardiopulmonary disease. Chest CTA 09/10/23 22:38 IMPRESSION: 1. No evidence of pulmonary embolism. 2. No acute cardiopulmonary disease. Laboratory Results WBC 8.70 10^3/uL (3.29-11.43) 09/10/23 20:41 RBC 5.67 10^6/uL (3.85-5.65) H 09/10/23 20:41 Hgb 16.60 g/dL (11.27-16.99) 09/10/23 20:41 Hct 47.9 % (37-53) 09/10/23 20:41 MCV 84.5 fl (82-101) 09/10/23 20:41 MCH 29.3 pg (27-33) 09/10/23 20:41 MCHC 34.7 g/dL (30-55) 09/10/23 20:41 RDW 12.0 % (12.1-15.1) L 09/10/23 20:41 Plt Count 353 10^3/cmm (157-399) 09/10/23 20:41 MPV 9.6 fL (7.4-10.4) 09/10/23 20:41 Neut % (Auto) 56.1 % 09/10/23 20:41 Lymph % (Auto) 33.4 % 09/10/23 20:41 [place] % (Auto) 7.4 % 09/10/23 20:41 Eos % (Auto) 2.0 % 09/10/23 20:41 Baso % (Auto) 0.8 % 09/10/23 20:41 Neut # (Auto) 4.88 10^3/uL (1.8-7.7) 09/10/23 20:41 Lymph # (Auto) 2.9 10^3/uL (0.8-4.8) 09/10/23 20:41 [place] # (Auto) 0.6 10^3/uL (0.2-0.9) 09/10/23 20:41 Eos # (Auto) 0.2 10^3/uL (0.0-0.8) 09/10/23 20:41 Baso # (Auto) 0.1 10^3/uL (0.0-0.1) 09/10/23 20:41 Nucleated RBC % (auto) 0 % 09/10/23 20: Nucleated RBCs # 0.0 /100WBC 09/10/23 20:41 D-Dimer <= 0.27 ug/mLFEU (0-0.59) 09/10/23 00:01 Specimen Type Arterial 09/10/23 20:33 Sample Site Radial, right 09/10/23 20:33 ABG pH 7.47 (7.35-7.45) H 09/10/23 20:33 ABG pCO2 35.5 mmHg (35-45) 09/10/23 20:33 ABG pO2 320.0 mmHg (80.0-100.0) H 09/10/23 20:33 ABG PO2/FiO2 Ratio 0 09/10/23 20:33 ABG HCO3 25.9 mmol/L (22-26) 09/10/23 20:33 ABG Base Excess 2.6 mmol/L (-2.0-2.0) H 09/10/23 20:33 Sachin Test Pos 09/10/23 20:33 Hematocrit 50.6 % (42-52) 09/10/23 20:33 Hgb O2 Saturation 99.3 % (95-100) 09/10/23 20:33 Carboxyhemoglobin 0.7 %THgb (0.4-20.1) 09/10/23 20:33 Methemoglobin 0.7 % (0.4-1.5) 09/10/23 20:33 Total Hemoglobin 16.5 g/dL (14-18) 09/10/23 20:33 O2 Delivery Device Bipap 09/10/23 20:33 FiO2 60.0 % 09/10/23 20:33 Loading Shovel Oiler ID [email or web address] 09/10/23 20:33 Sodium 139 mmol/L (136-145) 09/10/23 20:41 Potassium 3.8 mmol/L (3.5-5.1) 09/10/23 20:41 Chloride 103 mmol/L (98-107) 09/10/23 20:41 Carbon Dioxide 26 mmol/L (22-29) 09/10/23 20:41 Anion Gap 13.8 (5-19) 09/10/23 20:41 BUN 12 mg/dL (6-20) 09/10/23 20:41 Creatinine 0.8 mg/dL (0.7-1.2) 09/10/23 20:41 GFR Calculation 117.8 mL/min (90-130) 09/10/23 20:41 Glucose 113 mg/dL (65-115) 09/10/23 20:41 Calculated Osmolality 289 mOsm/kg (285-295) 09/10/23 20:41 Lactic Acid 2.1 mmol/L (0.5-2.2) 09/10/23 20:41 Lactic Acid (Sepsis) 6.4 mmol/L (0.5-2.2) H* 09/11/23 00:01 Calcium 9.7 mg/dL (8.5-10.5) 09/10/23 20:41 Magnesium 2.2 mg/dL (1.7-2.3) 09/10/23 20:41 Total Bilirubin 0.2 mg/dL (0.15-1.2) 09/10/23 20:41 AST 12 U/L (0-40) 09/10/23 20:41 ALT 11 U/L (0-41) 09/10/23 20:41 Alkaline Phosphatase 69 U/L (40-130) 09/10/23 20:41 Troponin T Baseline < 6 ng/L (0-15) 09/10/23 20:41 Troponin T 120 Minute 8.50 ng/L (0-15) 09/11/23 00:01 Delta Troponin T 2.52485 ABS# (0-10) 09/11/23 00:01 Total Protein 7.6 g/dL (6.6-8.7) 09/10/23 20:41 Albumin 4.9 g/dL (3.5-5.2) 09/10/23 20:41 Globulin 2.7 g/dL (1.3-4.6) 09/10/23 20:41 A&P Assessment and plan (1) Asthma with exacerbation: Qualifiers: Asthma severity: severe Asthma persistence: persistent Qualified Code(s): J45.51 - Severe persistent asthma with (acute) exacerbation (2) Status asthmaticus: (3) Sleep apnea in adult: Plan 23-year-old male with known past medical history as above presenting today with severe respiratory distress, status asthmaticus. ER treatment as described above. Admit to ICU for close monitoring of respiratory status. Patient high risk of quick decompensation given vocal cord dysfunction and brittle asthma. Currently patient is feeling improved after these interventions. Respiratory rate is down from 65/min to 20/min. He is able to talk in complete sentences, however continues to have diffuse expiratory wheezing all areas. Continue treatment with DuoNeb inhalation every 4 hours, budesonide 0.5 mg twice daily inhalation. Methylprednisolone 80 mg IV every 6 hours., Taper per clinical response. Continued use of BiPAP at bedtime, patient typically uses a CPAP at home. He has been out of prescription for Advair for the past few days, potentially this may have been the trigger for his symptoms. Chest x-ray without consolidation. Denies any upper respiratory symptoms prior to onset of symptoms today. Sinus tachycardia on telemetry, heart rate 120 to 130 bpm, likely triggered by multiple doses of albuterol inhalation, stress from respiratory distress. Monitor for now. Check twelve-lead EKG DVT prophylaxis: Lovenox 40 mg subcutaneously Full code Attestations 2 Medical Necessity Statement*: Greater than 2 midnight stay is anticipated at this time. Critical Care Time: The high probability of a clinically significant, sudden or life threatening deterioration of the patient's [respiratory/cardiac] system(s) required my full and direct attention, intervention and personal management. The critical care time is as shown. This time is in addition to time spent performing any reported procedures but includes the following: [x] Data and vital sign review and interpretation [x] Patient assessment, examination and intervention [x] Documentation [x] Medication orders and management Critical Care Time (min): 45 Coding Level of Care Code Critical Care >/= 30 minutes Diagnoses Severe persistent asthma with acute exacerbation J45.51 Asthma severity: severe Asthma persistence: persistent Status asthmaticus J45.902 Sleep apnea in adult G47.30
[2023-09-10] MEDS: iohexol 350 mg/mL 500 mL Btl (per mL) IV (23:54)
[2023-09-11] VITALS (13 sets, daily range): BP systolic 100–121; BP diastolic 49–69; PULSE 125–146; RESP 18–33; TEMP 37.2; O2SAT 95–99; BMI 21.0
[2023-09-11 00:32] LABS: Troponin 5 2HR Delta 2.50001 ABS# (0-10)
[2023-09-11 00:36] LABS: D Dimer <= 0.27 ug/mLFEU (0-0.59)
[2023-09-11 00:39] LABS: Lactic Acid level (Lactate) 6.4 mmol/L (0.5-2.2)
[2023-09-11] MEDS: methylPREDNISolone sod succ 125 mg/2 mL INJ 80 MG IVP (00:43)
[2023-09-11] MEDS: enoxaparin 40 mg/0.4 mL Syringe SUBCUT (00:43)
[2023-09-11] MEDS: albuterol 2.5 mg/3 mL Neb INHALATION (00:43)
--- NOTE | 2023-09-11 00:57 | ECG_ITS ---
[facility] Test Date: 2023-09-11 Pat Name: Milan Christine Department: Room: ICU03 Gender: Male Casing Mixer: : 2000 Requested By: Ravi Avery Order Number: [id number] Sera MD: Mynor Gaines M.D. Measurements Intervals [place] Rate: 144 P: 82 [place]: 122 QRS: 91 QRSD: 97 T: 68 QT: 327 QTc: 508 Interpretive Statements SINUS TACHYCARDIA, POSSIBLE ATRIAL FLUTTER BORDERLINE RIGHT AXIS DEVIATION [QRS AXIS > 90] INCOMPLETE RIGHT BUNDLE BRANCH BLOCK [90+ ms QRS DURATION, TERMINAL R IN V1/V2, 40+ ms S IN I/aVL/V4/V5/V6] NONSPECIFIC T-WAVE ABNORMALITY ABNORMAL RHYTHM ECG Compared to ECG 09/10/2023 20:43:19 Incomplete right bundle-branch block now present T-wave abnormality now present Electronically Signed On 09-11-2023 19:14:35 CDT by Mynor Gaines M.D. [email or web address].[employer]/store/[id number]
--- NOTE | 2023-09-11 02:16 | PC.NURSE ---
AMA Patient stated desire to leave hospital AMA. [place] [employer] contacted to ensure patient released from custody. Verification received that patient was released from custody and free to go.
--- NOTE | 2023-09-11 02:31 | PC.NURSE ---
AMA: Patient stated he wanted to leave. This nurse explained to the patient the risks of him leaving given his medical condition. Patient stated he knows himself and he feels better. sawmill supervisor notified and Dr. Angelo notified. Patient signed AMA formed and verbalized understanding of the risks of him leaving.
== END 2023-09-11 02:35 | disposition left against medical advice (07) | DRG 203 ==
LOC: ER 22:40 → ICU 22:45
PROVIDERS: Admitting Provider Student in an Organized Health Care Education/Training Program; Emergency Provider Emergency Medicine; PCP Family Medicine; Visit Provider Student in an Organized Health Care Education/Training Program
DX: J45.51 Severe persistent asthma with (acute) exacerbation (principal); Z79.51 Long term (current) use of inhaled steroids; J45.52 Severe persistent asthma with status asthmaticus; G47.30 Sleep apnea, unspecified; Z53.29 Procedure and treatment not carried out because of patient's decision for other reasons; Z99.89 Dependence on other enabling machines and devices; J38.3 Other diseases of vocal cords
CPT/HCPCS: 36415; 36600; 71045; 71275; 80053; 82805; 83605; 83735; 84484; 85025; 85378; 93005; 94640; 94660; 96372; 96374; 96375; 99291; G0378; J1100; J1650; J2060; J2405; J2919; J3475; J3490; J7040; J7613; Q9967

== ENCOUNTER 2024-08-21 20:22 | Inpatient (IN) | payer SELFPAY ==
[2024-08-21] VITALS (13 sets, daily range): BP systolic 108–146; BP diastolic 53–88; PULSE 119–138; RESP 29–33; TEMP 36.8; O2SAT 96–100; BMI 22.4
--- NOTE | 2024-08-21 20:31 | ECG_ITS ---
[facility] Test Date: 2024-08-21 Pat Name: Milan Christine Department: Room: Gender: Male Copy Messenger: : 2000 Requested By: Domingo Pizano Order Number: [id number] Sera MD: KSENIA ARANA Measurements Intervals [place] Rate: 121 P: 159 [place]: 133 QRS: 137 QRSD: 89 T: 85 QT: 338 QTc: 481 Interpretive Statements SINUS TACHYCARDIA ARM LEADS REVERSED [INVERTED P AND QRS IN I] ABNORMAL RHYTHM ECG Compared to ECG 09/11/2023 00:57:57 Incomplete right bundle-branch block no longer present T-wave abnormality no longer present Electronically Signed On 08-22-2024 19:03:54 CDT by KSENIA ARANA [email or web address]/store/[id number]
[2024-08-21] MEDS: methylPREDNISolone sod succ 40 mg/mL INJ IVP (20:45)
[2024-08-21] MEDS: ipratropium-albuterol 3 mL Neb INHALATION ×3 (20:56→22:07)
--- NOTE | 2024-08-21 21:06 | ED_ITS ---
HPI - SOB/Dyspnea 2 General: Chief Complaint: Shortness of Breath/Dyspnea Stated Complaint: SOB Time Seen by Provider: 08/21/24 20:32 History of Present Illness: HPI Narrative: 24 year old male patient with a history of asthma and multiple exacerbations who is currently incarcerated presents with acute asthma exacerbation that began approximately 1.5-2 hours prior to presentation. Reports exposure to cleaning chemicals in bathroom yesterday, followed by cold-like symptoms and wheezing that progressively worsened. Patient attempted to use inhaler but was unable to access home medications due to transportation issues. Medical history significant for chronic asthma with multiple previous ED visits and BiPAP interventions (reports 5 previous visits). Current medications include Proventil, Flovent, Xopenex for nebulizer, Singulair, Cetirizine, and Omeprazole. Patient is an active smoker. Related Data Home Medications ?Medication ?Instructions ?Recorded ?Confirmed cetirizine 10 mg tablet 10 mg PO DAILY 04/07/2412/22 omeprazole 20 mg capsule,delayed 20 mg PO DAILY 04/07/24 release Previous Rx's ?Medication ?Instructions ?Recorded fluticasone propionate 220 1 inh inhalation BID #12 gr ams 07/05/21 mcg/actuation HFA aerosol inhaler (Flovent HFA) ondansetron 4 mg disintegrating 4 mg PO Q6H PRN nausea and 07/06/21 tablet vomiting #14 tabs albuterol sulfate 2.5 mg/3 mL 2.5 mg (3 mL) inhalation Q4H PRN 02/18/22 (0.083 %) solution for nebulization Shortness Of Breat h #75 mL albuterol sulfate 90 mcg/actuation 2 puff inhalation Q 4H PRN 02/18/22 aerosol inhaler (ProAir HFA) Shortness Of Breath 30 da ys #8.5 grams albuterol sulfate 90 mcg/actuation 1 inh inhalation Q6 H PRN shortness 09/11/23 aerosol inhaler (ProAir HFA) of breath or wheezing #8. 5 grams fluticasone propionate 50 1 spray intranasal DAILY PRN 09/11/23 mcg/actuation nasal allergy symptoms #16 grams spray,suspension (Flonase Allergy Relief) albuterol sulfate 90 mcg/actuation 1 inh inhalation Q6 H PRN shortness 04/07/24 aerosol inhaler of breath or wheezing #8.5 g nicholas fluticasone 250 mcg-salmeterol 50 1 inh inhalation BID #60 ea 04/07/24 mcg/dose blistr powdr for inhalation (Advair Diskus) montelukast 10 mg tablet 10 mg PO DAILY asthma #30 ta bs 04/07/24 (Singulair) prednisone 20 mg tablet 40 mg (2 x 20 mg) PO DAILY 5 days 04/07/24 #10 tabs Allergies Allergy/AdvReac Type Severity Reaction Status Date / Time codeine AdvReac ADR-Halluci Verified 08/21/24 21:07 nating Review of Systems 2 General: Reports: 10 or more systems reviewed and unremarkable except in HPI and below PFSH ED 2 PFSH: Medical History (Updated 08/22/24 @ 01:06 by Domingo Pizano DO) Asthma dependent on inhaled steroids Vocal cord dysfunction Asthma Laryngopharyngeal reflux Surgical History H/O rhinoplasty Family History Mother Asthma Father Asthma Social History Smoking and tobacco/nicotine status: never used tobacco/nicotine Alcohol intake: never Lives independently: Yes Marital status: Single Current occupational status: employed Physical Exam 2 Const: COMMON NORMALS: average body habitus and alert; apparent distress (Mild respiratory distress. Taking Duoneb. ) HENMT: COMMON NORMALS: normocephalic and moist oral mucous membranes HEAD & SCALP: normocephalic Resp: COMMON NORMALS: negative for normal respiratory effort and negative for No use of accessory muscles EFFORT & INSPECTION: Yes able to speak in complete sentences, Yes respiratory distress and Yes audible wheezes Cardio: COMMON NORMALS: regular rhythm; negative for regular rate RATE: abnormal rate and tachycardic RHYTHM: r egular rhythm Neuro: SENSORIUM/ORIENTATION: Yes alert Skin: COMMON NORMALS: no rashes or lesions noted and turgor normal GENERAL SKIN EXAM: no rashes or lesions noted and turgor normal Course 2 Vital Signs: Vital signs: Vital Signs Temperature 98.2 F 08/21/24 20:26 Pulse Rate 105 H 08/22/24 02:00 Respiratory Rate 16 08/22/24 02:00 Blood Pressure 108/58 08/22/24 02:00 Pulse Oximetry 94 08/22/24 02:00 Oxygen Delivery Me thod Room Air 08/22/24 00:57 MDM - SOB/Dyspnea Medical Decision Making 1. Acute Asthma Exacerbation: - Likely triggered by chemical exposure and complicated by active smoking - Plan: * IV access for medication administration * DuoNeb treatment * IV magnesium sulfate * IV steroids (methylprednisolone) * Will consider BiPAP if no improvement with initial interventions 2. Smoking Cessation: - Strongly advised to quit smoking due to exacerbation of asthma - Will provide smoking cessation resources Differential Diagnosis Likely acute exacerbation of chronic obstructive airways disease, congestive heart failure, community acquired pneumonia, asthma with exacerbation and pulmonary embolism Lab Data 08/21/24 20:35 08/21/24 20:35 Labs/Radiology: Radiology Impressions Chest X-Ray 08/21/24 21:09 IMPRESSION: No acute findings. Laboratory Results WBC 9.10 10^3/uL (3.29-11.43) 08/21/24 20:35 RBC 5.10 10^6/uL (3.85-5.65) 08/21/24 20:35 Hgb 14.90 g/dL (11.27-16.99) 08/21/24 20:35 Hct 44.9 % (37-53) 08/21/24 20:35 MCV 88.0 fl (82-101) 08/21/24 20:35 MCH 29.2 pg (27-33) 08/21/24 20:35 MCHC 33.2 g/dL (30-55) 08/21/24 20:35 RDW 12.8 % (12.1-15.1) 08/21/24 20:35 Plt Count 300 10^3/cmm (157-399) 08/21/24 20:35 MPV 10.5 fL (7.4-10.4) H 08/21/24 20:35 Neut % (Auto) 77.7 % 08/21/24 20:35 Lymph % (Auto) 11.1 % 08/21/24 20:35 [place] % (Auto) 7.1 % 08/21/24 20:35 Eos % (Auto) 3.0 % 08/21/24 20:35 Baso % (Auto) 0.7 % 08/21/24 20:35 Neut # (Auto) 7.07 10^3/uL (1.8-7.7) 08/21/24 20:35 Lymph # (Auto) 1.0 10^3/uL (0.8-4.8) 08/21/24 20:35 [place] # (Auto) 0.7 10^3/uL (0.2-0.9) 08/21/24 20:35 Eos # (Auto) 0.3 10^3/uL (0.0-0.8) 08/21/24 20:35 Baso # (Auto) 0.1 10^3/uL (0.0-0.1) 08/21/24 20:35 Nucleated RBC % (auto) 0 % 08/21/24 20:35 Nucleated RBCs # 0.0 /100WBC 08/21/24 20:35 Sodium 140 mmol/L (136-145) 08/21/24 20:35 Potassium 3.9 mmol/L (3.5-5.1) 08/21/24 20:35 Chloride 100 mmol/L (98-107) 08/21/24 20:35 Carbon Dioxide 26 mmol/L (22-29) 08/21/24 20:35 Anion Gap 17.9 (5-19) 08/21/24 20:35 BUN 18 mg/dL (6-20) 08/21/24 20:35 Creatinine 0.7 mg/dL (0.7-1.2) 08/21/24 20:35 GFR Calculation 136.3 mL/min (90-130) H 08/21/24 20:35 Glucose 104 mg/dL (65-115) 08/21/24 20:35 Calculated Osmolality 292 mOsm/kg (285-295) 08/21/24 20:35 Calcium 9.6 mg/dL (8.5-10.5) 08/21/24 20:35 Magnesium 1.9 mg/dL (1.7-2.3) 08/21/24 20:35 All radiology interpretation(s) finalized by discharge ED provider radiology interpretation(s): NO acute findings EKG Data sinus tachycardia: EKG Interpretation Date: 08/22/24 EKG interpretation time: 01:05 Interpretation: Tachycardic rate, normal rhythm and axis Other Data 24-year-old male with status asthmaticus. He has had a harder than usual time turning around but certainly is markedly improved from previous evaluation. He is continuing to receive some frequent nebulizations and I have recommended observation in the hospital overnight. He will need ongoing steroids and breathing treatments. Discharge Plan Discharge Patient Disposition: Placed in Observation Clinical Impression: Asthma with exacerbation Qualifiers: Asthma severity: severe Asthma persistence: persistent Qualified Code(s): J 45.51 - Severe persistent asthma with (acute) exacerbation Discharge Diet: Advance as tolerated Discharge Activity: Resume usual activity Coding Level of Care Code ED Stacker for Milagro Alberto
--- NOTE | 2024-08-21 21:09 | XRR_ITS ---
PROCEDURE INFORMATION: Exam: XR Chest Exam date and time: 08/21/2024 9:15 PM Age: 24 years old Clinical indication: Shortness of breath; Additional info: SOB TECHNIQUE: Imaging protocol: Radiologic exam of the chest. Views: 1 view. COMPARISON: CT angio chest PE protcl [id number] 09/10/2023 11:43 PM FINDINGS: Lungs: Unremarkable. No consolidation. Pleural spaces: Unremarkable. No pleural effusion. No pneumothorax. Heart/Mediastinum: Unremarkable. No cardiomegaly. Bones/joints: Unremarkable. XR/XR chest 1V portable [id number] IMPRESSION: No acute findings.
[2024-08-21] MEDS: magnesium sulfate premix 2 GM/50 ML PIGGYBACK IV (21:28)
[2024-08-21] MEDS: LORazepam 1 MG/0.5 ML injection 2 MG IVP (21:54)
[2024-08-21] MEDS: diphenhydrAMINE 50 mg/mL SDV 1mL IVP (23:31)
[2024-08-21] MEDS: metoclopramide 5 mg/mL SDV 2 mL 10 MG IVP (23:40)
[2024-08-22] VITALS (147 sets, daily range): BP systolic 95–135; BP diastolic 43–75; PULSE 93–155; RESP 9–44; TEMP 36.7–37.7; O2SAT 92–100
[2024-08-22] MEDS: levalbuterol 1.25 mg/3 mL Neb INHALATION (00:57)
[2024-08-22 01:56] LABS: Basophils # 0.1 10^3/uL (0.0-0.1); Basophils % 0.7 %; Eosinophils # 0.3 10^3/uL (0.0-0.8); Hematocrit 44.9 % (37-53); Lymphocytes % 11.1 %; Mean Corpuscular HGB Conc 33.2 g/dL (30-55); Mean Corpuscular Hemoglobin 29.2 pg (27-33); Mean Platelet Volume 10.5 fL (7.4-10.4); Monocytes # 0.7 10^3/uL (0.2-0.9); Monocytes % 7.1 %; Neutrophils # 7.07 10^3/uL (1.8-7.7); Neutrophils % 77.7 %; Nucleated Red Blood Cells % 0 %; Platelet Count 300 10^3/cmm (157-399); Red Cell Distribution Width 12.8 % (12.1-15.1)
[2024-08-22 02:10] LABS: Blood Urea Nitrogen 18 mg/dL (6-20); Calcium 9.6 mg/dL (8.5-10.5); Carbon Dioxide 26 mmol/L (22-29); Chloride 100 mmol/L (98-107); Creatinine Clr Calc Pharmacy 148.3936; Glomerular Filtration Rate 136.3 mL/min (90-130); Glucose 104 mg/dL (65-115); Magnesium 1.9 mg/dL (1.7-2.3); Osmolality Calculated 292 mOsm/kg (285-295); Sodium 140 mmol/L (136-145)
[2024-08-22 02:13] LABS: Anion Gap 17.9 (5-19); Potassium 3.9 mmol/L (3.5-5.1)
--- NOTE | 2024-08-22 04:39 | P.HP_ITS ---
Providers/Chief Complaint 2 Admitting Physician: Yas Wan MD Primary Care Provider: Elpidio Yadav MD Chief Complaint: SOB History of Present Illness Milan Christine is a 24 yo man w/ Asthma dx'ed since age 1 on Omalizumab injections monthly, allergic rhinitis, and GERD, who was brought to the ED on 08/21/2024 from [facility] for acute onset dyspnea. The patient tells me that he has been locked up for about a month now. The patient states that he has had the allergy skin test and is allergic to many things, including black mold. He states that the shower was being cleaned the previous day 08/20/2024, with chemicals and there was mold. He tells me that on the morning of 08/21, he woke up feeling achy, itchy eyes, rhinorrhea, nasal congestion, a feeling in his chest, and slight wheezing that initially improved. However, by dinner on 08/21, he developed a yellow productive cough, increased wheezing and dyspnea, so he asked the [place] [facility] officers for an inhaler, but there was none, so they brought him to the ED. He endorses chills, chest pain, chest tightness. He denies fever, chest pain, abdominal pain, n/v. He tells me that since he got locked up, his parents have not been able to get his medications to him. He confirmed the following to me as his medications: Singulair albuterol/atrovent advair - due to insurance. omeprazole - GERD cetirizinea Xolair (Omalizumab) - Montly injections at [facility] in [place], [place]. Takes the medication monthly. Last had it in mid to late June. He tells me that prior to starting omalizumab, he was using 2-3 rescue inhalers monthly. In the ED, the patient was tachypneic to the 30s and tachycardic to the 120s. He had no leukocytosis. His CXR showed no acute findings. He was given DuoNebs x 3, 1 leave albuterol treatment x 1, Solu-Medrol 40 mg IM x 1 and IVP x 1, Reglan 10 mg IVP x 1, Ativan 2 mg IVP x 1, Benadryl 50 mg IVP x 1 before he was stabilized and admitted to the [facility] for further management. Per the ED physician the patient was in status asthmaticus On admission, while interviewing the patient, he remained visibly dyspneic. One could hear him breathing; although not wheezing. On immediate exam, he had minimal air movement in the bilateral mid lung rainey, and no air movement in the bilateral lower lung bases. He also had diffuse inspiratory squeaks bilaterally. 1 L NS at 500 cc/h was initiated. RT was called to give 2 [id number] DuoNeb treatments, and DuoNebs and Solu-Medrol was scheduled. After the treatments, repeat exam revealed some improvement in air movement, the same bilateral inspiratory squeaks, and mild wheezes appreciated. The patient was actively encouraged to request for as needed treatments if needed. Review of Systems 2 Const: Denies: fever(s) or chills Eyes: Denies: change in vision ENMT: Reports: nasal discharge, nasal congestion and other (itchy watery eyes. ); Denies: odynophagia, ear or mastoid pain or ear discharge Card: Reports: chest pain and palpitations; Denies: lightheadedness Resp: Reports: dyspnea and productive cough; Denies: non-productive cough or wheezing GI: Denies: abdominal pain, nausea, vomiting, diarrhea, constipation or hematochezia : Reports: urinary frequency and urinary urgency; Denies: difficulty urinating, dysuria or hematuria Musc: Reports: other (no myalgias); Denies: joint pain Skin/Breast: Denies: rash or new lesions Neuro: Denies: headache(s) or dizziness Psych: Denies: anxiety, depression, suicidal ideation or homicidal ideation Endo: Denies: cold intolerance or heat intolerance Raphael/Lymph: Denies: easy bruising or easy bleeding Medications/Allergies Home Medications ?Medication ?Instructions ?Recorded ?Confirmed ?Last Taken ?Type fluticasone propionate 220 1 inh inhalation BID #12 gr ams 07/05/21 08/22/24 Unknown Rx mcg/actuation HFA aerosol inhaler (Flovent HFA) ondansetron 4 mg disintegrating 4 mg PO Q6H PRN nausea and 07/06/21 08/22/24 Unknown Rx tablet vomiting #14 tabs albuterol sulfate 2.5 mg/3 mL 2.5 mg (3 mL) inhalation Q4H PRN 02/18/22 08/22/24 Unknown Rx (0.083 %) solution for nebulization Shortness Of Breat h #75 mL albuterol sulfate 90 mcg/actuation 2 puff inhalation Q 4H PRN 02/18/22 08/22/24 Unknown Rx aerosol inhaler (ProAir HFA) Shortness Of Breath 30 da ys #8.5 grams albuterol sulfate 90 mcg/actuation 1 inh inhalation Q6 H PRN shortness 09/11/23 08/22/24 Unknown Rx aerosol inhaler (ProAir HFA) of breath or wheezing #8. 5 grams fluticasone propionate 50 1 spray intranasal DAILY PRN 09/11/23 08/22/24 Unknown Rx mcg/actuation nasal allergy symptoms #16 grams spray,suspension (Flonase Allergy Relief) albuterol sulfate 90 mcg/actuation 1 inh inhalation Q6 H PRN shortness 04/07/24 08/22/24 Unknown Rx aerosol inhaler of breath or wheezing #8.5 g nicholas cetirizine 10 mg tablet 10 mg PO DAILY 04/07/24/09/21 Unknown History fluticasone 250 mcg-salmeterol 50 1 inh inhalation BID #60 ea 04/07/24 08/22/24 Unknown Rx mcg/dose blistr powdr for inhalation (Advair Diskus) montelukast 10 mg tablet 10 mg PO DAILY asthma #30 ta bs 04/07/24 08/22/24 Unknown Rx (Singulair) omeprazole 20 mg capsule,delayed 20 mg PO DAILY 08/22/24 Unknown History release prednisone 20 mg tablet 40 mg (2 x 20 mg) PO DAILY 5 days 04/07/24 08/22/24 Unknown Rx #10 tabs Allergies Allergy/AdvReac Type Severity Reaction Status Date / Time codeine AdvReac ADR-Halluci Verified 08/21/24 21:07 nating PFSH Acute 2 PFSH: Medical History (Updated 08/22/24 @ 09:22 by Yas Wan MD) Asthma dependent on inhaled steroids Vocal cord dysfunction Asthma Laryngopharyngeal reflux Surgical History (Updated 08/22/24 @ 05:13 by Yas Wan MD) 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 Family History Mother Asthma Father Asthma Social History (Updated 08/22/24 @ 05:12 by Yas Wan MD) Smoking and tobacco/nicotine status: tobacco/nicotine user, details unknown e- cigarettes E-Cigarette Details: vaporizer device and with nicotine E-cig/vape details: vaped for 1year and stopped 2 years ago. Alcohol intake: never Substance/Drug Use: never Lives independently: Yes Marital status: Single Current occupational status: employed Vitals/I&O/Wt Last Vital Signs Temp 98.0 F 08/22/24 03:18 Pulse 93 08/22/24 03:18 Resp 21 H 08/22/24 03:18 BP 109/69 08/22/24 03:18 Pulse Ox 97 08/22/24 03:18 O2 Del Method Room Air 08/22/24 03:18 08/21/24 08/21/24 08/22/24 14:59 22:59 06:59 Intake Total 50 / 50 Balance 50 / 50 Weight last 48 hrs Weight 64.864 kg Physical Exam 2 Narrative: Constitutional: GENERAL APPEARANCE: cooperative, uncomfortable, young, thin; ill appearing and not frail appearing HENT: HEAD & SCALP: normocephalic and atraumatic; NOSE: external nose not normal EXTERNAL EAR: no external ears normal MOUTH: Normal oral and palatal mucosa present THROAT: posterior oropharynx normal Eye: PERRL, EOMI, normal conjunctiva b/l Neck: normal visual inspection, trachea midline, No anterior neck swelling, No tracheal deviation, No tracheostomy present, no submandibular swelling, Thyroid normal , cervical ROM normal Lymph: no cervical, supraclavicular LAD Resp: use of accessory muscles, RT was called to give 2 [id number] DuoNeb treatments, and DuoNebs and Solu-Medrol was scheduled. After the treatments, repeat exam revealed some improvement in air movement, the same bilateral inspiratory squeaks, and mild wheezes appreciated. Cardio: RRR, no m/r/g, or clicks. 2+ radial and DP pulses. GI: normoactive bowel sounds, non-tender, non-distended, no guarding, no rigidity, no rebound tenderness, no hepatosplenomegaly. : No Marie in place draining urine, No CVA tenderness Back/Pelvis: Deferred Extremity: No clubbing, No cyanosis and No edema Neuro: AO to person, place and time. CN normal except as noted. Normal gait present. 5/5 motor strength present throughout. Normal motor muscle tone present throughout. No tremor noted. No motor abnormalities present. No motor fasciculations present Psych: APPEARANCE: Yes grossly normal ATTITUDE: Yes calm and Yes engaged ACTIVITY/MOTOR BEHAVIOR: Yes appropriate eye contact SPEECH: Yes normal speech MOOD & AFFECT: Yes euthymic mood THOUGHT PROCESS: Normal thought process present THOUGHT CONTENT: Yes Normal thought content present ATTENTION/CONCENTRATION: Yes attention grossly intact MEMORY/COGNITION: Yes memory grossly intact Data 08/22/24 05:58 08/22/24 05:58 A&P Assessment and plan (1) GERD (gastroesophageal reflux disease): (2) Severe asthma with acute exacerbation: (3) Lactic acidosis: (4) Steroid-induced hyperglycemia: Plan Milan Christine is a 24 yo man w/ Asthma dx'ed since age 1 on Omalizumab injections monthly, allergic rhinitis, and GERD, who was brought to the ED on 08/21/2024 from [facility] [facility] for Acute asthma exacerbation with concern for status asthmaticus. #Acute Severe Asthma Exacerbation w/ concern for Status Asthtmaticus - F?u BCx and Sputum cx - Continue active agressive duoneb q4h treatments and q4h prn treatments. - Continue Solumedrol scheduled - Give another 1L NS at 500cc/hr and continue continuous IVF at 75cc/hr - I spoke with the female officer from [facility] who was monitoring the patient at bedside, and she states that it will be possible to get the patient's inhalers, nebulizers and other necessary medications that the patient needs before he returns to [facility]. Based on my discussion with her, it may be difficult for the patient to get the omalizumab. #Lactic acidosis - F/u lactate #AGAP Metabolic acidosis: possibly due to his exacerbation. Continue to monitor. # Allergic rhinitis: Resumed cetirizine & montelukast # GERD: Resumed pantoprazole. #Hyperglycemia: likely steroid induced. - Ordered low dose SSI qAC and high dose SSI at bedtime - F/u A1c DVT ppx: Lovenox GI ppx: Pantoprazole. PDMP PDMP Reviewed: Not Reviewed Attestations 2 Medical Necessity Statement*: The patient needs to be hospitalized for greater than 2 midnights for his acute severe asthma exacerbation with concern for status asthmaticus., Lactic acidosis, and likely steroid-induced hyperglycemia. Coding Level of Care Code 88804 High Time for a total of 80 minutes, includes reviewing past or interval history, examining/interviewing patient, placing orders, counseling patient/family/other support, updating patient/family/other support, discussing plan of care with staff, communicating with other healthcare providers, documenting encounter and coordinating care Other Coding Information Focused coding review requested Diagnoses GERD (gastroesophageal reflux disease) K21.9 Severe asthma with acute exacerbation J45.901 Lactic acidosis E87.20 Steroid-induced hyperglycemia R73.9; T38.0X5A
[2024-08-22] MEDS: ipratropium-albuterol 3 mL Neb INHALATION ×9 (05:09→23:14)
[2024-08-22] MEDS: sodium chloride 0.9% 1,000 ML 500 ML IV ×2 (05:15→09:33)
[2024-08-22] MEDS: pantoprazole 40 mg SDV IVP (05:18)
[2024-08-22 05:53] LABS: Bilirubin Urine Negative (Negative); Blood Urine Negative (Negative); Glucose Urine UA Trace (Normal); Ketones Urine Negative (Negative); Leukocyte Esterase Urine Negative (Negative); Nitrate Urine Negative (Negative); Protein Urine Negative (Negative); Specific Gravity, Urine 1.017 (1.005-1.030); Urine Appearance Clear (CLEAR); Urine Color Yellow (Yellow); Urobilinogen Urine 0.2 mg/dL (Negative); pH Urine 5.5 (5-7)
[2024-08-22 06:00] LABS: Add Urine Microscopic? YES; Bacteria Urine None Seen /hpf; Hyaline Casts Urine 0.81 /lpf; RBC Urine 0-2 /hpf (0-2); Squamous Epithelial Cell Urine 0-5 /hpf (0-5); WBC Urine 0-5 /hpf (0-5)
[2024-08-22 06:16] LABS: Basophils % 0.5 %; Hematocrit 41.2 % (37-53); Lymphocytes # 0.5 10^3/uL (0.8-4.8); Lymphocytes % 8.1 %; Mean Corpuscular HGB Conc 31.8 g/dL (30-55); Mean Corpuscular Hemoglobin 28.5 pg (27-33); Mean Corpuscular Volume 89.8 fl (82-101); Mean Platelet Volume 9.7 fL (7.4-10.4); Monocytes # 0.2 10^3/uL (0.2-0.9); Monocytes % 3.8 %; Neutrophils % 86.7 %; Nucleated Red Blood Cells % 0 %; Platelet Count 236 10^3/cmm (157-399); Red Blood Count 4.59 10^6/uL (3.85-5.65); Red Cell Distribution Width 12.8 % (12.1-15.1); White Blood Count 5.77 10^3/uL (3.29-11.43)
[2024-08-22] MEDS: enoxaparin 40 mg/0.4 mL Syringe SUBCUT (06:22)
[2024-08-22] MEDS: sodium chloride 0.9% 1,000 ML 100 ML IV (06:24)
[2024-08-22 06:48] LABS: Alanine Aminotransferase 13 U/L (0-41); Albumin Level 4.3 g/dL (3.5-5.2); Alkaline Phosphatase 71 U/L (40-130); Aspartate Amino Transferase 12 U/L (0-40); Blood Urea Nitrogen 14 mg/dL (6-20); Carbon Dioxide 18 mmol/L (22-29); Chloride 102 mmol/L (98-107); Globulin 2.5 g/dL (1.3-4.6); Glomerular Filtration Rate 116.9 mL/min (90-130); Glucose 181 mg/dL (65-115); Magnesium 2.1 mg/dL (1.7-2.3); Osmolality Calculated 291 mOsm/kg (285-295); Phosphorus 3.2 mg/dL (2.5-4.5); Sodium 138 mmol/L (136-145); Total Bilirubin 0.3 mg/dL (0.15-1.2); Total Protein 6.8 g/dL (6.6-8.7)
[2024-08-22] MEDS: methylPREDNISolone sod succ 40 mg/mL INJ IVP ×3 (08:21→20:07)
[2024-08-22 09:21] LABS: Lactate (Lactic Acid level) 5.2 mmol/L (0.5-2.2)
[2024-08-22] MEDS: ALPRAZolam 0.5 mg Tablet 0.25 MG PO ×2 (09:30→13:10)
[2024-08-22 09:39] LABS: Estmated Average Glucose 114; Hemoglobin A1C 5.6 % (4.0-6.0)
[2024-08-22] MEDS: AZITHROMYCIN ADD-Vantage 500 MG in 0.9% NaCl ADD-Vantage 250 ML 250 MG IV (10:44)
[2024-08-22] MEDS: magnesium sulfate premix 2 GM/50 ML PIGGYBACK IV (10:44)
[2024-08-22] MEDS: cefTRIAXone 1,000 mg SDV 1000 MG IVP (10:45)
[2024-08-22] MEDS: budesonide 0.5 mg/2 mL Neb INHALATION ×2 (11:40→19:45)
--- NOTE | 2024-08-22 11:53 | PM.PN ---
Subjective Subjective: Patient was seen this morning, currently alert oriented x 3, following all commands, he is sitting up in bed, he is able to speak to me at the end of the sentence he does become short of breath, mild nasal flaring, mild suprasternal retractions, and mild respiratory distress heart rates in the 130s sinus tachycardia, respiratory rate 20, he does appear to be comfortable during our discussion, he tells he that has been intubated twice for status asthmaticus, he tells me that during one of his hospital admissions they were considering ECMO, but he overall clinically improved, Vitals/I&O/Wt Last Vital Signs Temp 98.6 F 08/22/24 08:00 Pulse 144 H 08/22/24 11:50 Resp 28 H 08/22/24 11:40 BP 95/45 08/22/24 08:00 Pulse Ox 96 08/22/24 11:40 O2 Del Method Room Air 08/22/24 11:40 08/21/24 08/22/24 08/22/24 22:59 06:59 14:59 Intake Total 50 / 50 480 / 530 1000 / 1000 Output Total 480 / 480 Balance 50 / 50 480 / 530 520 / 520 Weight last 48 hrs Weight 68.855 kg Weight 64.864 kg Physical Exam Const: COMMON NORMALS: no acute distress and patient oriented x3 Lymph: LYMPHATIC: no lymphadenopathy noted Resp: AUSCULTATION: wheezes OTHER: Mild nasal flaring, intercostal retractions, suprasternal retractions, tachypnea, tachycardia, mild to moderate respiratory distress Wheezing heard in all lung rainey Cardio: COMMON NORMALS: regular rate, regular rhythm, S1 normal heart sound present and S2 normal heart sound present RATE: regular rate RHYTHM: regular rhythm HEART SOUNDS: S1 normal heart sound present and S2 normal heart sound present GI: COMMON NORMALS: Normal to inspection, nondistended, normoactive bowel sounds present and non-tender Extremity: COMMON NORMALS: no pedal edema Neuro: COMMON NORMALS: patient oriented x3 and CN's II-XII intact bilaterally Psych: COMMON NORMALS: mental status grossly normal Data 08/22/24 05:58 08/22/24 05:58 Micro: Microbiology 08/22/24 10:00 Blood Culture - Preliminary Blood SPECIMEN COLLECTED 08/22/24 10:05 Blood Culture - Preliminary Blood SPECIMEN COLLECTED A&P Assessment and plan (1) GERD (gastroesophageal reflux disease): (2) Severe asthma with acute exacerbation: (3) Lactic acidosis: (4) Steroid-induced hyperglycemia: Plan Milan Christine is a 24 yo man w/ Asthma currently on omalizumab injections monthly, allergic rhinitis, and GERD, who was brought to the ED on 08/21/2024 from skilled nursing for Acute asthma exacerbation with concern for status asthmaticus. - #Acute Severe Asthma Exacerbation w/ concern for Status Asthtmaticus -History of requiring intubation twice for asthma exacerbations, consideration of ECMO in the past -Discussed with patient possibility of intubation, morbidity and mortality associated, he voiced understanding, all questions answered, Plan -Follow blood cultures -Follow cultures - Continue DuoNeb -Continue budesonide - Continue Solumedrol 40 IV every 6 hours - Normal saline 100 cc an hour - Will moved to ICU for close monitoring - Start Rocephin - Start azithromycin #Lactic acidosis - Monitor lactic acid #AGAP Metabolic acidosis: Secondary dehydration, IV fluids # Allergic rhinitis: Resumed cetirizine & montelukast # GERD: Resumed pantoprazole. #Hyperglycemia: likely steroid induced. - Hemoglobin A1c within normal limits - Low-dose insulin sliding scale DVT ppx: Lovenox GI ppx: Pantoprazole. Plan for today, monitor in ICU, IV steroids, IV fluids, IV antibiotics, will give another dose of mag sulfate PDMP PDMP Reviewed: Not Reviewed Attestations Medical Necessity Statement*: Patient requires hospitalization for acute severe asthma exacerbation, concerns for status asthmaticus Diagnoses GERD (gastroesophageal reflux disease) K21.9 Severe asthma with acute exacerbation J45.901 Lactic acidosis E87.20 Steroid-induced hyperglycemia R73.9; T38.0X5A
[2024-08-22 12:06] LABS: Influenza A NEGATIVE (Negative); Influenza B NEGATIVE (Negative); Respiratory Syncytial Virus Ce NEGATIVE (Negative); SARS-CoV-2 PCR NEGATIVE (Negative)
[2024-08-22 12:19] LABS: Glucose Point of Care 243 mg/dL (70-110)
[2024-08-22] MEDS: insulin lispro 100 unit/1 mL SUBCUT ×3 (13:05→20:07)
[2024-08-22] MEDS: acetaminophen 325 mg Tablet 650 MG PO (13:10)
[2024-08-22] MEDS: lactated ringers 500 ML 999 ML IV (15:53)
[2024-08-22] MEDS: sodium chloride 0.9% 1,000 ML 125 ML IV (16:48)
[2024-08-22] MEDS: albuterol 2.5 MG/0.5 ML NEB INHALATION (17:22)
[2024-08-22 18:00] LABS: Glucose Point of Care 192 mg/dL (70-110)
[2024-08-22] MEDS: LORazepam 1 MG/0.5 ML injection IVP (19:14)
[2024-08-22 19:59] LABS: Glucose Point of Care 184 mg/dL (70-110)
[2024-08-23] VITALS (153 sets, daily range): BP systolic 75–152; BP diastolic 33–95; PULSE 99–140; RESP 14–48; TEMP 36.6–37.3; O2SAT 83–100
--- NOTE | 2024-08-23 | PC.NURSE ---
Verified with Dr. Neil patient receiving morphine with codeine allergy. Patient state allergy is seeing stars'
[2024-08-23] MEDS: morphine 4 mg/mL SDV 1 mL 2 MG IVP ×5 (00:13→23:53)
[2024-08-23] MEDS: sodium chloride 0.9% 1,000 ML 125 ML IV ×3 (01:10→22:36)
[2024-08-23] MEDS: methylPREDNISolone sod succ 40 mg/mL INJ IVP ×4 (01:15→21:13)
[2024-08-23 01:23] LABS: ABG PCO2 35.6 mmHg (35-45); ABG PH Result 7.39 (7.35-7.45); Alveolar-Arterial Oxygen Gradi 2.6 mmHg (5-10); Arterial Blood Gas Hematocrit 40.5 % (42-52); Blood Gas Allen Test Pos; Blood Gas Operator Identificat JDB; Blood Gas Sample Site Radial, right; Blood Gas Sample Type Arterial; Carboxyhemoglobin 0.6 %THgb (0.4-20.1); HCO3 ABG 21.4 mmol/L (22-26); HGB O2 Sat 95.7 % (95-100); Ionized Calcium Level - ABG 1.2 mmol/L (1.1-1.4); Methemoglobin 1.1 % (0.4-1.5); Oxygen Device ROOM AIR; Oxygen Saturation ABG 97.4; PO2 ABG 84.8 mmHg (80.0-100.0); PO2 FiO2 Ratio Arterial Blood 403; Potassium Level - ABG 4.1 mmol/L (3.5-5.0); Total Hemoglobin 13.2 g/dL (14-18)
[2024-08-23] MEDS: ALPRAZolam 0.5 mg Tablet 0.25 MG PO (03:29)
[2024-08-23 03:33] LABS: Basophils % 0.1 %; Hematocrit 41.1 % (37-53); Lymphocytes # 0.8 10^3/uL (0.8-4.8); Lymphocytes % 5.8 %; Mean Corpuscular HGB Conc 32.4 g/dL (30-55); Mean Corpuscular Hemoglobin 28.9 pg (27-33); Mean Corpuscular Volume 89.3 fl (82-101); Mean Platelet Volume 9.6 fL (7.4-10.4); Monocytes # 0.6 10^3/uL (0.2-0.9); Monocytes % 4.3 %; Neutrophils # 11.96 10^3/uL (1.8-7.7); Nucleated Red Blood Cells % 0 %; Platelet Count 292 10^3/cmm (157-399); Red Cell Distribution Width 13.2 % (12.1-15.1); White Blood Count 13.44 10^3/uL (3.29-11.43)
[2024-08-23 04:00] LABS: Alanine Aminotransferase 11 U/L (0-41); Albumin Level 4.1 g/dL (3.5-5.2); Alkaline Phosphatase 64 U/L (40-130); Anion Gap 16.5 (5-19); Aspartate Amino Transferase 10 U/L (0-40); Blood Urea Nitrogen 10 mg/dL (6-20); Calcium 9.1 mg/dL (8.5-10.5); Carbon Dioxide 21 mmol/L (22-29); Chloride 108 mmol/L (98-107); Creatinine Clr Calc Pharmacy 152.0045; Globulin 2.7 g/dL (1.3-4.6); Glomerular Filtration Rate 136.3 mL/min (90-130); Glucose 145 mg/dL (65-115); Osmolality Calculated 294 mOsm/kg (285-295); Phosphorus 2.3 mg/dL (2.5-4.5); Potassium 4.5 mmol/L (3.5-5.1); Sodium 141 mmol/L (136-145); Total Bilirubin 0.2 mg/dL (0.15-1.2); Total Protein 6.8 g/dL (6.6-8.7)
[2024-08-23] MEDS: ipratropium-albuterol 3 mL Neb INHALATION ×6 (04:06→23:38)
[2024-08-23] MEDS: enoxaparin 40 mg/0.4 mL Syringe SUBCUT (05:27)
[2024-08-23] MEDS: pantoprazole DR 40 mg Tablet PO (05:27)
[2024-08-23] MEDS: LORazepam 1 MG/0.5 ML injection IVP ×3 (05:27→21:13)
[2024-08-23] MEDS: sodium chloride 0.9% 1,000 ML 999 ML IV (05:28)
[2024-08-23] MEDS: insulin lispro 100 unit/1 mL SUBCUT ×4 (07:42→21:13)
[2024-08-23] MEDS: budesonide 0.5 mg/2 mL Neb INHALATION ×2 (07:51→19:30)
[2024-08-23] MEDS: sennosides 8.6 mg Tablet 17.2 MG PO (08:43)
[2024-08-23] MEDS: cloNIDine 0.1 mg Tablet PO (08:43)
[2024-08-23] MEDS: montelukast sodium 10 mg Tablet PO (08:45)
[2024-08-23] MEDS: cetirizine 10 mg Tablet PO (08:45)
[2024-08-23] MEDS: cefTRIAXone 1,000 mg SDV 1000 MG IVP (10:33)
[2024-08-23] MEDS: AZITHROMYCIN ADD-Vantage 500 MG in 0.9% NaCl ADD-Vantage 250 ML 250 MG IV (10:35)
[2024-08-23 12:16] LABS: Glucose Point of Care 170 mg/dL (70-110)
[2024-08-23 12:16] LABS: Glucose Point of Care 153 mg/dL (70-110)
--- NOTE | 2024-08-23 12:43 | P.PN_ITS ---
Subjective 2 Subjective: - Patient was seen this morning he is cu rrently alert oriented x 3, following all commands, overnight at about 4 AM he needed BiPAP to be started, currently 10/10, on 21% FiO2, he was taken off a little bit thereafter, but put back on due to reports of feeling tired - This morning he was seen ambulating to the bathroom without BiPAP, he feels better, but got back into bed, placed back on BiPAP at about 147, 21% FiO2 -While on BiPAP he was seen playing on h is phone, does not appear to be in respiratory distress - Discussed trialing off BiPAP this afte rnoon - Patient tells me that the last time he was hospitalized roughly in June at [facility] they tried heliox therapy which significantly helped, - We discussed risks and benefits of tra nsfer, for consideration of heliox therapy, he voiced understanding, all questions answered, agreed to proceed - During our conversation, he continues to have wheezing in all lung rainey, airways do sound tight but no nasal flaring, no intercostal retraction, no suprasternal retractions - I discussed with him that I do think h e is getting better, I am hoping that he turns a corner in a bed as the steroid start to work, but will reach out to [facility] - I reached out to [facility] transfer center , - I spoke to [facility]'s ironworker machine operator, sunita kinsey in detail, discussed patient's transition to BiPAP, overall I hope that he turns a corner, but I do feel that patient would benefit from heliox therapy, discussed patient is also request for transfer for consideration of heliox therapy - Currently [facility] ironworker machine operator does not feel that Milan is a candidate for heliox therapy, for now they recommend continued medical management here at [facility], and if patient's conditions worsen they recommend for me to reach out to them in the afternoon, they could consider transfer in the afternoon Vitals/I&O/Wt Last Vital Signs Temp 97.8 F 08/23/24 04:00 Pulse 128 H 08/23/24 12:06 Resp 22 H 08/23/24 12:00 BP 108/49 08/23/24 12:00 Pulse Ox 98 08/23/24 12:00 O2 Del Method Room Air 08/23/24 12:00 FiO2 21 08/23/24 08:00 08/22/24 08/23/24 08/23/24 22:59 06:59 14:59 Intake Total 1173.333 / 4640.000 2000 / 6640.000 1730 / 1730 Output Total 1800 / 2280 300 / 2580 625 / 625 Balance -626.667 / 2360.000 1700 / 4060.000 1105 / 1105 Weight last 48 hrs Weight 30.164 kg Weight 68.855 kg Weight 64.864 kg Physical Exam 2 Const: COMMON NORMALS: no acute distress and patient oriented x3 Eye: COMMON NORMALS: Equal, round and reactive pupils present and EOMs intact bilaterally PUPIL: Yes Equal, round and reactive pupils present Neck/C-Spine: COMMON NORMALS: no lymphadenopathy Resp: COMMON NORMALS: normal respiratory effort, No retractions and No use of accessory muscles AUSCULTATION: wheezes OTHER: Wheezing in all lung rainey, no belly breathing, Cardio: COMMON NORMALS: regular rate, regular rhythm, S1 normal heart sound present and S2 normal heart sound present RATE: regular rate RHYTHM: r egular rhythm HEART SOUNDS: S1 normal heart sound present and S2 normal heart sound present GI: COMMON NORMALS: Normal to inspection, nondistended, normoactive bowel sounds present and non-tender Extremity: COMMON NORMALS: no pedal edema Neuro: COMMON NORMALS: patient oriented x3, CN's II-XII intact bilaterally and moves all extremities Psych: COMMON NORMALS: mental status grossly normal Data 08/23/24 03:18 08/23/24 03:18 Micro: Microbiology 08/22/24 10:00 Blood Culture - Preliminary Blood NEGATIVE TO DATE 08/22/24 10:05 Blood Culture - Preliminary Blood NEGATIVE TO DATE A&P Assessment and plan (1) GERD (gastroesophageal reflux disease): (2) Severe asthma with acute exacerbation: (3) Lactic acidosis: (4) Steroid-induced hyperglycemia: Plan Milan Christine is a 24 yo man w/ Asthma currently on omalizumab injections monthly, allergic rhinitis, and GERD, who was brought to the ED on 08/[facility]/2024 from [facility] for Acute asthma exacerbation with concern for status asthmaticus. - #Acute Severe Asthma Exacerbation w/ concern for Status Asthtmaticus -History of requiring intubation twice for asthma exacerbations, consideration of ECMO in the past -Discussed with patient possibility of intubation, morbidity and mortality associated, he voiced understanding, all questions answered, Plan -Follow blood cultures -Follow cultures - Continue DuoNeb -Continue budesonide - Continue Solumedrol 40 IV every 6 hours - Normal saline 100 cc an hour - Start Rocephin - Start azithromycin -Reached out to [facility]-ironworker machine operator, recommended continue medical management here at [facility], for now he is not a candidate for heliox therapy, but if the condition worsens they would consider accepting in transfer - Will reassess this afternoon, #Lactic acidosis - Monitor lactic acid #AGAP Metabolic acidosis: Secondary dehydration, IV fluids # Allergic rhinitis: Resumed cetirizine & montelukast # GERD: Resumed pantoprazole. #Hyperglycemia: likely steroid induced. - Hemoglobin A1c within normal limits - Low-dose insulin sliding scale DVT ppx: Lovenox GI ppx: Pantoprazole. Plan for today, monitor in ICU, IV steroids, IV fluids, IV antibiotics, PDMP PDMP Reviewed: Not Reviewed Attestations 2 Medical Necessity Statement*: Patient requires hospitalization, for severe asthma exacerbation, status asthmaticus Diagnoses GERD (gastroesophageal reflux disease) K21.9 Severe asthma with acute exacerbation J45.901 Lactic acidosis E87.20 Steroid-induced hyperglycemia R73.9; T38.0X5A
[2024-08-23 17:39] LABS: Glucose Point of Care 185 mg/dL (70-110)
[2024-08-23 20:51] LABS: Glucose Point of Care 302 mg/dL (70-110)
[2024-08-24] VITALS (143 sets, daily range): BP systolic 100–151; BP diastolic 39–116; PULSE 84–150; RESP 8–37; TEMP 36.9–37.3; O2SAT 88–100
[2024-08-24] MEDS: methylPREDNISolone sod succ 40 mg/mL INJ IVP ×3 (01:19→14:32)
[2024-08-24] MEDS: ipratropium-albuterol 3 mL Neb INHALATION ×6 (03:13→23:41)
[2024-08-24] MEDS: LORazepam 1 MG/0.5 ML injection IVP ×3 (03:15→21:07)
[2024-08-24 03:30] LABS: Basophils % 0.2 %; Hematocrit 46.3 % (37-53); Lymphocytes # 0.8 10^3/uL (0.8-4.8); Lymphocytes % 4.8 %; Mean Corpuscular HGB Conc 30.7 g/dL (30-55); Mean Corpuscular Hemoglobin 28.7 pg (27-33); Mean Corpuscular Volume 93.5 fl (82-101); Mean Platelet Volume 10.8 fL (7.4-10.4); Monocytes # 0.6 10^3/uL (0.2-0.9); Monocytes % 3.7 %; Neutrophils # 15.31 10^3/uL (1.8-7.7); Neutrophils % 89.3 %; Nucleated Red Blood Cells % 0 %; Platelet Count 289 10^3/cmm (157-399); Red Blood Count 4.95 10^6/uL (3.85-5.65); Red Cell Distribution Width 13.4 % (12.1-15.1); White Blood Count 17.15 10^3/uL (3.29-11.43)
[2024-08-24] MEDS: morphine 4 mg/mL SDV 1 mL 2 MG IVP ×4 (03:42→20:06)
[2024-08-24 04:00] LABS: Alanine Aminotransferase 10 U/L (0-41); Albumin Level 3.9 g/dL (3.5-5.2); Alkaline Phosphatase 65 U/L (40-130); Anion Gap 19.3 (5-19); Aspartate Amino Transferase 9 U/L (0-40); Blood Urea Nitrogen 15 mg/dL (6-20); Calcium 8.9 mg/dL (8.5-10.5); Carbon Dioxide 19 mmol/L (22-29); Chloride 108 mmol/L (98-107); Creatinine Clr Calc Pharmacy 79.5994; Glomerular Filtration Rate 162.9 mL/min (90-130); Glucose 140 mg/dL (65-115); Magnesium 1.9 mg/dL (1.7-2.3); Osmolality Calculated 297 mOsm/kg (285-295); Phosphorus 2.6 mg/dL (2.5-4.5); Potassium 4.3 mmol/L (3.5-5.1); Sodium 142 mmol/L (136-145); Total Bilirubin 0.2 mg/dL (0.15-1.2); Total Protein 5.9 g/dL (6.6-8.7)
[2024-08-24] MEDS: pantoprazole DR 40 mg Tablet PO (05:11)
[2024-08-24] MEDS: enoxaparin 40 mg/0.4 mL Syringe SUBCUT (05:11)
--- NOTE | 2024-08-24 07:57 | XR_ITS ---
WS: [id number] Portable AP upright chest, 08/24/2024 Clinical Data: sob Comparison: Portable chest, 08/21/2024 Findings: No nodules, masses or effusions are seen. The heart is normal. The pulmonary vascularity is not increased. No pneumonia or pneumothorax is seen. There is a monitor lead over the left upper chest. XR/XR chest 1V portable [id number] Impression: Negative chest.
[2024-08-24] MEDS: budesonide 0.5 mg/2 mL Neb INHALATION ×2 (07:58→19:50)
[2024-08-24] MEDS: sennosides 8.6 mg Tablet 17.2 MG PO (08:19)
[2024-08-24] MEDS: montelukast sodium 10 mg Tablet PO (08:19)
[2024-08-24] MEDS: cetirizine 10 mg Tablet PO (08:19)
[2024-08-24] MEDS: AZITHROMYCIN ADD-Vantage 500 MG in 0.9% NaCl ADD-Vantage 250 ML 250 MG IV (10:27)
[2024-08-24] MEDS: cefTRIAXone 1,000 mg SDV 1000 MG IVP (10:28)
[2024-08-24 10:59] LABS: Lactate (Lactic Acid level) 3.4 mmol/L (0.5-2.2)
[2024-08-24 11:06] LABS: Procalcitonin 0.04 ng/mL (0-0.5)
[2024-08-24] MEDS: ALPRAZolam 0.5 mg Tablet 0.25 MG PO (11:57)
[2024-08-24 12:01] LABS: Glucose Point of Care 139 mg/dL (70-110)
[2024-08-24 12:01] LABS: Glucose Point of Care 178 mg/dL (70-110)
[2024-08-24] MEDS: insulin lispro 100 unit/1 mL SUBCUT ×2 (12:27→17:46)
--- NOTE | 2024-08-24 14:04 | P.PN_ITS ---
Subjective 2 Subjective: - Patient was seen this morning, he was fast asleep, when I woke him - He is quite comfortable, on examinatio n no insignificant finding no intercostal traction no suprasternal tractions, - Good breath sounds in bilateral lung f ields, minimal expiratory wheezing - He tells me that he does not feel bett er, he wants us to consider heliox therapy - Discussed with patient that currently he is on room air, blood pressures have been reasonable he is tachycardic, but likely side effect of albuterol, - Clinically he looks better, -Discussed with patient again my discuss ion with Meghan Patino yesterday, he was not a candidate for heliox therapy with his condition yesterday, when he was needing more BiPAP, he did briefly require BiPAP during the night, but currently off of it he looks much more comfortable today no evidence of respiratory distress, remains on room air, so I do not feel that he likely will meet criteria today - Discussed continuing medical intervent ions, giving him time, if his respiratory condition worsens certainly we can reach out to Meghan again Vitals/I&O/Wt Last Vital Signs Temp 99.2 F 08/24/24 09:00 Pulse 117 H 08/24/24 13:45 Resp 24 H 08/24/24 13:45 BP 133/52 08/24/24 13:45 Pulse Ox 95 08/24/24 13:45 O2 Del Method Room Air 08/24/24 13:45 FiO2 21 08/24/24 03:15 08/23/24 08/24/24 08/24/24 22:59 06:59 14:59 Intake Total 1440 / 3610 1490 / 1490 Output Total 1600 / 2875 700 / 700 Balance 1440 / 2335 -1600 / 735 790 / 790 Weight last 48 hrs Weight 66.8 kg Weight 30.164 kg Physical Exam 2 Const: COMMON NORMALS: no acute distress and patient oriented x3 Resp: COMMON NORMALS: normal respiratory effort, No retractions, No use of accessory muscles and clear to auscultation bilaterally AUSCULTATION: clear to auscultation bilaterally Cardio: COMMON NORMALS: regular rate, regular rhythm, S1 normal heart sound present and S2 normal heart sound present RATE: regular rate RHYTHM: r egular rhythm HEART SOUNDS: S1 normal heart sound present and S2 normal heart sound present GI: COMMON NORMALS: Normal to inspection, nondistended, normoactive bowel sounds present and non-tender Extremity: COMMON NORMALS: no pedal edema Neuro: COMMON NORMALS: patient oriented x3 Psych: COMMON NORMALS: mental status grossly normal Data 08/24/24 03:00 08/24/24 03:00 Micro: Microbiology 08/23/24 13:01 Gram Stain - Final Sputum - Expectorated Sputum 08/22/24 10:00 Blood Culture - Preliminary Blood NEGATIVE TO DATE 08/22/24 10:05 Blood Culture - Preliminary Blood NEGATIVE TO DATE A&P Assessment and plan (1) GERD (gastroesophageal reflux disease): (2) Severe asthma with acute exacerbation: (3) Lactic acidosis: (4) Steroid-induced hyperglycemia: Plan Milan Christine is a 24 yo man w/ Asthma currently on omalizumab injections monthly, allergic rhinitis, and GERD, who was brought to the ED on 08/21/2024 from intermediate for Acute asthma exacerbation with concern for status asthmaticus. - #Acute Severe Asthma Exacerbation w/ concern for Status Asthtmaticus -History of requiring intubation twice for asthma exacerbations, consideration of ECMO in the past -Discussed with patient possibility of intubation, morbidity and mortality associated, he voiced understanding, all questions answered, Plan -Follow blood cultures -Follow cultures - Continue DuoNeb -Continue budesonide - Continue Solumedrol 40 IV every 6 hours - Normal saline 100 cc an hour - Rocephin - azithromycin -Reached out to [facility]-pouch maker, recommended continue medical management here at [facility], for now he is not a candidate for heliox therapy, but if the condition worsens they would consider accepting in transfer, but by the afternoon he remained on room air, respiratory status stable, spoke to [facility] transfer line again, reported his clinical improvement, thus currently not a candidate for transfer or heliox therapy -Spoke with patient again this morning, again wants us to consider heliox therapy, remains on room air, did briefly require BiPAP during the night currently off, no evidence of respiratory distress, good breath sounds bilateral lung rainey I do not feel that he is a candidate for Heliox therapy currently and he looks better than he did yesterday, but did discuss with patient that if his condition worsens we can certainly reach out to [facility] for transfer for consideration of Heliox therapy - But if he did want to transfer we could consider transfer for preference, but the cost of transfer would be out of his pocket, as currently there is no medical need given his improving clinical status - Will reassess this afternoon, #Lactic acidosis - Monitor lactic acid #AGAP Metabolic acidosis: Secondary dehydration, IV fluids # Allergic rhinitis: Resumed cetirizine & montelukast # GERD: Resumed pantoprazole. #Hyperglycemia: likely steroid induced. - Hemoglobin A1c within normal limits - Low-dose insulin sliding scale DVT ppx: Lovenox GI ppx: Pantoprazole. Plan for today, moved out of ICU, IV fluids, IV steroids PDMP PDMP Reviewed: Not Reviewed Attestations 2 Medical Necessity Statement*: Patient requires hospitalization for acute asthma exacerbation Diagnoses GERD (gastroesophageal reflux disease) K21.9 Severe asthma with acute exacerbation J45.901 Lactic acidosis E87.20 Steroid-induced hyperglycemia R73.9; T38.0X5A
[2024-08-24] MEDS: sodium chloride 0.9% 1,000 ML 125 ML IV ×2 (14:32→23:01)
[2024-08-24 17:27] LABS: Glucose Point of Care 144 mg/dL (70-110)
[2024-08-24 20:12] LABS: Glucose Point of Care 144 mg/dL (70-110)
[2024-08-25] VITALS (53 sets, daily range): BP systolic 95–157; BP diastolic 43–88; PULSE 67–136; RESP 9–28; TEMP 36.8–37.2; O2SAT 84–98
[2024-08-25 03:23] LABS: Basophils % 0.2 %; Hematocrit 39.7 % (37-53); Lymphocytes % 7.4 %; Mean Corpuscular HGB Conc 31.7 g/dL (30-55); Mean Corpuscular Hemoglobin 29.2 pg (27-33); Mean Corpuscular Volume 92.1 fl (82-101); Mean Platelet Volume 9.6 fL (7.4-10.4); Monocytes % 7.4 %; Neutrophils # 10.76 10^3/uL (1.8-7.7); Neutrophils % 82.3 %; Nucleated Red Blood Cells % 0 %; Platelet Count 266 10^3/cmm (157-399); Red Blood Count 4.31 10^6/uL (3.85-5.65); Red Cell Distribution Width 13.3 % (12.1-15.1); White Blood Count 13.05 10^3/uL (3.29-11.43)
[2024-08-25] MEDS: ipratropium-albuterol 3 mL Neb INHALATION ×5 (03:43→21:02)
[2024-08-25 03:44] LABS: Alanine Aminotransferase 14 U/L (0-41); Albumin Level 3.4 g/dL (3.5-5.2); Alkaline Phosphatase 48 U/L (40-130); Anion Gap 15.7 (5-19); Aspartate Amino Transferase 9 U/L (0-40); Blood Urea Nitrogen 12 mg/dL (6-20); Calcium 8.5 mg/dL (8.5-10.5); Carbon Dioxide 22 mmol/L (22-29); Chloride 108 mmol/L (98-107); Creatinine Clr Calc Pharmacy 175.1694; Glomerular Filtration Rate 162.9 mL/min (90-130); Glucose 119 mg/dL (65-115); Magnesium 1.8 mg/dL (1.7-2.3); Osmolality Calculated 295 mOsm/kg (285-295); Phosphorus 3.6 mg/dL (2.5-4.5); Potassium 3.7 mmol/L (3.5-5.1); Sodium 142 mmol/L (136-145); Total Bilirubin 0.2 mg/dL (0.15-1.2); Total Protein 5.4 g/dL (6.6-8.7)
[2024-08-25] MEDS: morphine 4 mg/mL SDV 1 mL 2 MG IVP ×3 (04:14→19:34)
[2024-08-25] MEDS: enoxaparin 40 mg/0.4 mL Syringe SUBCUT (05:56)
[2024-08-25] MEDS: pantoprazole DR 40 mg Tablet PO (05:56)
[2024-08-25] MEDS: LORazepam 1 MG/0.5 ML injection IVP ×2 (05:56→21:58)
[2024-08-25] MEDS: methylPREDNISolone sod succ 40 mg/mL INJ IVP ×2 (05:56→18:11)
[2024-08-25] MEDS: budesonide 0.5 mg/2 mL Neb INHALATION ×2 (07:38→21:04)
[2024-08-25 07:59] LABS: Glucose Point of Care 126 mg/dL (70-110)
[2024-08-25] MEDS: cetirizine 10 mg Tablet PO (08:30)
[2024-08-25] MEDS: montelukast sodium 10 mg Tablet PO (08:30)
[2024-08-25] MEDS: sodium chloride 0.9% 1,000 ML 125 ML IV (08:31)
[2024-08-25 11:14] LABS: Glucose Point of Care 117 mg/dL (70-110)
[2024-08-25] MEDS: cefTRIAXone 1,000 mg SDV 1000 MG IVP (11:44)
[2024-08-25] MEDS: AZITHROMYCIN ADD-Vantage 500 MG in 0.9% NaCl ADD-Vantage 250 ML 250 MG IV (11:44)
[2024-08-25] MEDS: ALPRAZolam 0.5 mg Tablet 0.25 MG PO (13:24)
--- NOTE | 2024-08-25 14:25 | P.PN_ITS ---
Subjective 2 Subjective: Patient was seen this morning, he does feel better this morning continues to have wheezing, complains of shortness of breath with exertion, does have a nonproductive cough, he does tell me that he does develop tachycardia on exertion, Vitals/I&O/Wt Last Vital Signs Temp 98.9 F 08/25/24 04:00 Pulse 131 H 08/25/24 12:00 Resp 28 H 08/25/24 12:00 BP 119/78 08/25/24 11:30 Pulse Ox 84 L 08/25/24 12:00 O2 Del Method Room Air 08/25/24 11:00 FiO2 21 08/25/24 03:47 08/24/24 08/25/24 08/25/24 22:59 06:59 14:59 Intake Total 1000 / 2490 1480 / 1480 Output Total 1125 / 1825 700 / 2525 1050 / 1050 Balance -125 / 665 -700 / -35 430 / 430 Weight last 48 hrs Weight 66.678 kg Weight 66.8 kg Physical Exam 2 Const: COMMON NORMALS: no acute distress and patient oriented x3 Resp: COMMON NORMALS: normal respiratory effort, No retractions and No use of accessory muscles AUSCULTATION: wheezes Cardio: COMMON NORMALS: regular rate, regular rhythm, S1 normal heart sound present and S2 normal heart sound present RATE: regular rate RHYTHM: r egular rhythm HEART SOUNDS: S1 normal heart sound present and S2 normal heart sound present GI: COMMON NORMALS: Normal to inspection, nondistended, normoactive bowel sounds present and non-tender Extremity: COMMON NORMALS: no pedal edema Neuro: COMMON NORMALS: patient oriented x3 Psych: COMMON NORMALS: mental status grossly normal Data 08/25/24 02:56 08/25/24 03:00 Micro: Microbiology 08/23/24 13:01 Gram Stain - Final Sputum - Expectorated Sputum Sputum Culture - Preliminary A&P Assessment and plan (1) GERD (gastroesophageal reflux disease): (2) Severe asthma with acute exacerbation: (3) Lactic acidosis: (4) Steroid-induced hyperglycemia: Plan Milan Christine is a 24 yo man w/ Asthma currently on omalizumab injections monthly, allergic rhinitis, and GERD, who was brought [facility] the ED on [facility] from [facility] for Acute asthma exacerbation with concern for status asthmaticus. - #Acute Severe Asthma Exacerbation w/ concern for Status Asthtmaticus -History of requiring intubation twice for asthma exacerbations, consideration of ECMO in the past -Discussed with patient possibility of intubation, morbidity and mortality associated, he voiced understanding, all questions answered, Plan -Follow blood cultures -Follow cultures - Continue albuterol as needed -Continue budesonide - Continue Solumedrol 40 IV every 12 hours - Normal saline 100 cc an hour, stopped - Rocephin, discontinued today - azithromycin, discontinue today -Transition to doxycycline - Clinically improving, moved to medical floors planning discharge in the next 24 hours based on clinical progress #Lactic acidosis - Monitor lactic acid #AGAP Metabolic acidosis: Secondary dehydration, I # Allergic rhinitis: Resumed cetirizine & montelukast # GERD: Resumed pantoprazole. #Hyperglycemia: likely steroid induced. - Hemoglobin A1c within normal limits - Low-dose insulin sliding scale DVT ppx: Lovenox GI ppx: Pantoprazole. Plan for today, moved out of ICU, IV steroids, de-escalate antibiotic therapy PDMP PDMP Reviewed: Not Reviewed Attestations 2 Medical Necessity Statement*: Patient requires hospitalization for asthma exacerbation Diagnoses GERD (gastroesophageal reflux disease) K21.9 Severe asthma with acute exacerbation J45.901 Lactic acidosis E87.20 Steroid-induced hyperglycemia R73.9; T38.0X5A
[2024-08-25 16:45] LABS: Adenovirus Not Detected (NOT DETECT); Chlamydia Pneumoniae Not Detected (NOT DETECT); Coronavirus 229E,HKU1,NL63,OC4 Not Detected (NOT DETECT); Human Metapneumovirus Not Detected (NOT DETECT); Human Rhinovirus/Enterovirus Not Detected (NOT DETECT); Influenza A Not Detected (NOT DETECT); Influenza A H1 Not Detected (NOT DETECT); Influenza A H1-2009 Not Detected (NOT DETECT); Influenza A H3 Not Detected (NOT DETECT); Influenza B Not Detected (NOT DETECT); Mycoplasma Pneumoniae Not Detected (NOT DETECT); Parainfluenza Virus Type 1 Not Detected (NOT DETECT); Parainfluenza Virus Type 2 Not Detected (NOT DETECT); Parainfluenza Virus Type 3 Detected (NOT DETECT); Parainfluenza Virus Type 4 Not Detected (NOT DETECT); Respiratory Syncytial Virus A Not Detected (NOT DETECT); Respiratory Syncytial Virus B Not Detected (NOT DETECT); SARS-COV-2 Not Detected (NOT DETECT)
[2024-08-25 17:03] LABS: Glucose Point of Care 104 mg/dL (70-110)
[2024-08-25 21:06] LABS: Glucose Point of Care 135 mg/dL (70-110)
[2024-08-26] VITALS (25 sets, daily range): BP systolic 123–148; BP diastolic 64–87; PULSE 75–105; RESP 16–18; TEMP 36.6–37.3; O2SAT 91–98
[2024-08-26] MEDS: morphine 4 mg/mL SDV 1 mL 2 MG IVP ×3 (00:12→13:32)
[2024-08-26] MEDS: enoxaparin 40 mg/0.4 mL Syringe SUBCUT (06:12)
[2024-08-26] MEDS: methylPREDNISolone sod succ 40 mg/mL INJ IVP ×2 (06:12→17:12)
[2024-08-26] MEDS: pantoprazole DR 40 mg Tablet PO (06:12)
[2024-08-26] MEDS: budesonide 0.5 mg/2 mL Neb INHALATION ×2 (08:12→19:25)
[2024-08-26] MEDS: ipratropium-albuterol 3 mL Neb INHALATION ×3 (08:12→19:25)
[2024-08-26] MEDS: montelukast sodium 10 mg Tablet PO (08:51)
[2024-08-26] MEDS: cetirizine 10 mg Tablet PO (08:52)
[2024-08-26] MEDS: doxycycline 100 mg Tablet PO ×2 (08:52→17:12)
[2024-08-26 12:43] LABS: Glucose Point of Care 119 mg/dL (70-110)
--- NOTE | 2024-08-26 16:42 | P.PN_ITS ---
Subjective 2 Subjective: Patient was seen this morning he does feel better today, no tachypnea, tachycardia does have wheezing, yesterday his respiratory viral panel was positive for parainfluenza virus, continue conservative interventions Vitals/I&O/Wt Last Vital Signs Temp 99.1 F 08/26/24 14:00 Pulse 100 08/26/24 14:52 Resp 18 08/26/24 14:52 BP 123/82 08/26/24 14:00 Pulse Ox 93 08/26/24 14:52 O2 Del Method Room Air 08/26/24 14:52 FiO2 21 08/25/24 03:47 08/26/24 08/26/24 08/26/24 06:59 14:59 22:59 Intake Total 220 / 3630 500 / 500 Balance 220 / 980 500 / 500 Weight last 48 hrs Weight 67.358 kg Weight 66.678 kg Physical Exam 2 Const: COMMON NORMALS: no acute distress and patient oriented x3 Resp: COMMON NORMALS: normal respiratory effort, No retractions and No use of accessory muscles AUSCULTATION: wheezes Cardio: COMMON NORMALS: regular rate, regular rhythm, S1 normal heart sound present and S2 normal heart sound present RATE: regular rate RHYTHM: r egular rhythm HEART SOUNDS: S1 normal heart sound present and S2 normal heart sound present GI: COMMON NORMALS: Normal to inspection, nondistended, normoactive bowel sounds present and non-tender Extremity: COMMON NORMALS: capillary refill normal and no pedal edema Neuro: COMMON NORMALS: patient oriented x3 Psych: COMMON NORMALS: mental status grossly normal Data 08/25/24 02:56 08/25/24 03:00 Micro: Microbiology 08/23/24 13:01 Gram Stain - Final Sputum - Expectorated Sputum Sputum Culture - Final A&P Assessment and plan (1) GERD (gastroesophageal reflux disease): (2) Severe asthma with acute exacerbation: (3) Lactic acidosis: (4) Steroid-induced hyperglycemia: (5) Parainfluenza virus bronchitis: Plan Milan Christine is a 24 yo man w/ Asthma currently on omalizumab injections monthly, allergic rhinitis, and GERD, who was brought to the ED on 08/21/2024 from [facility] for Acute asthma exacerbation with concern for status asthmaticus. - #Acute Severe Asthma Exacerbation w/ concern for Status Asthtmaticus -History of requiring intubation twice for asthma exacerbations, consideration of ECMO in the past -Discussed with patient possibility of intubation, morbidity and mortality associated, he voiced understanding, all questions answered, - Now with parainfluenza virus Plan -MedSurg status -Follow blood cultures, so far negative - Continue albuterol as needed -Continue budesonide - Continue Solumedrol 40 IV every 12 hours, stop tonight de-escalate to prednisone 40 mg daily - Normal saline 100 cc an hour, stopped - Rocephin, discontinued today - azithromycin, discontinue today -Transition to doxycycline -Parainfluenza virus, conservative intervention - Plan on discharging on x-ray 4 hours #Lactic acidosis - Monitor lactic acid #AGAP Metabolic acidosis: Secondary dehydration, I # Allergic rhinitis: Resumed cetirizine & montelukast # GERD: Resumed pantoprazole. #Hyperglycemia: likely steroid induced. - Hemoglobin A1c within normal limits - Low-dose insulin sliding scale DVT ppx: Lovenox GI ppx: Pantoprazole. Plan for today, moved out of ICU, de-escalate IV steroids, plan to discharge in the next 24 hours PDMP PDMP Reviewed: Not Reviewed Attestations 2 Medical Necessity Statement*: Patient requires hospitalization for asthma exacerbation, parainfluenza virus Diagnoses GERD (gastroesophageal reflux disease) K21.9 Severe asthma with acute exacerbation J45.901 Lactic acidosis E87.20 Steroid-induced hyperglycemia R73.9; T38.0X5A Parainfluenza virus bronchitis J20.4
[2024-08-26] MEDS: ALPRAZolam 0.5 mg Tablet 0.25 MG PO (17:14)
[2024-08-26 17:26] LABS: Glucose Point of Care 117 mg/dL (70-110)
--- NOTE | 2024-08-26 17:49 | PC.NURSE ---
Shift Summary: Uneventful shift. Rested in bed for most of the day, but up occasionally to eat/restroom/etc. Bilateral inspiratory and expiratory wheezing is still present, but improved compared to this morning. Likely discharge tommorow.
[2024-08-26 21:32] LABS: Glucose Point of Care 148 mg/dL (70-110)
[2024-08-26] MEDS: insulin lispro 100 unit/1 mL SUBCUT (21:39)
[2024-08-27] VITALS (7 sets, daily range): BP systolic 105–135; BP diastolic 55–71; PULSE 73–106; RESP 16–19; TEMP 36.6–36.7; O2SAT 93–96
[2024-08-27] MEDS: enoxaparin 40 mg/0.4 mL Syringe SUBCUT (05:17)
[2024-08-27] MEDS: pantoprazole DR 40 mg Tablet PO (05:18)
[2024-08-27 06:44] LABS: Glucose Point of Care 114 mg/dL (70-110)
[2024-08-27] MEDS: ipratropium-albuterol 3 mL Neb INHALATION (08:25)
[2024-08-27] MEDS: budesonide 0.5 mg/2 mL Neb INHALATION (08:25)
[2024-08-27] MEDS: cetirizine 10 mg Tablet PO (09:39)
[2024-08-27] MEDS: montelukast sodium 10 mg Tablet PO (09:39)
[2024-08-27] MEDS: predniSONE 20 mg Tablet 40 MG PO (09:39)
[2024-08-27] MEDS: doxycycline 100 mg Tablet PO (09:39)
[2024-08-27 11:19] LABS: Glucose Point of Care 100 mg/dL (70-110)
--- NOTE | 2024-08-27 14:24 | PM.DCS ---
Discharge Providers Date of Admission: 08/22/24 02:32 Date of Discharge: August 27, 2024 Attending Provider at Admission: Yas Wan MD Attending Provider at Discharge: Bhavik Lima MD Primary Care Provider: Elpidio Yadav MD Diagnoses at Discharge Discharge Diagnosis (1) GERD (gastroesophageal reflux disease): Status: Acute (2) Severe asthma with acute exacerbation: Status: Acute (3) Lactic acidosis: Status: Acute (4) Steroid-induced hyperglycemia: Status: Acute (5) Parainfluenza virus bronchitis: Status: Acute Reason for Visit Reason for Visit: SOB Hospital Course Hospital Course This is a 24-year-old male with a past medical history of asthma, allergic rhinitis, GERD who presents [facility] for acute asthma exacerbation Patient was admitted to [facility] for acute severe asthma exacerbation with concern for status asthmaticus, admitted to the ICU, he was closely monitored, received broad-spectrum antibiotic therapy, fluid therapy, IV steroids, IV anxiety medications, and clinically monitored. Patient did intermittently require BiPAP however remained on room air, initially there was plans on transferring patient for consideration of heliox therapy however he was not deemed a candidate by tertiary level center. Patient has slow clinical progress, but overall clinically improved, antibiotic therapy was de-escalated, steroid therapy was de-escalated, inhaler therapy was de-escalated. His hospitalization was complicated by parainfluenza virus positivity and wheezing associated. Nonetheless he overall clinically improved, was moved to the medical floors, de-escalate to oral steroids; on discharge he is alert oriented x 3, following all commands, has good breath sounds in bilateral lung rainey, no evidence of respiratory distress or respiratory failure, ambulating without significant symptomatology, no fevers, no cough. Will be discharged on a prednisone taper, doxycycline, albuterol, Advair, instructions to drink plenty of electrolyte balanced fluids, and follow-up with primary care provider as outpatient. Patient was advised if he were to have any worsening shortness of breath or wheezing to immediately go to the emergency room. Due to his parainfluenza virus positivity, his history of severe asthma/severe asthma exacerbations, I have advised him to avoid public places for at least 48 hours. Physical Exam Const: COMMON NORMALS: no acute distress and patient oriented x3 Resp: COMMON NORMALS: normal respiratory effort, No retractions, No use of accessory muscles and clear to auscultation bilaterally AUSCULTATION: clear to auscultation bilaterally Cardio: COMMON NORMALS: regular rate, regular rhythm, S1 normal heart sound present and S2 normal heart sound present RATE: regular rate RHYTHM: regular rhythm HEART SOUNDS: S1 normal heart sound present and S2 normal heart sound present GI: COMMON NORMALS: Normal to inspection, nondistended, normoactive bowel sounds present and non-tender Extremity: COMMON NORMALS: no pedal edema Neuro: COMMON NORMALS: patient oriented x3 Psych: COMMON NORMALS: mental status grossly normal Discharge Data Studies Completed and Pending Completed Studies During Hospitalization Category Date Time Status XR chest 1V portable [id number] Routine Exams 08/24/24 07:57 Completed XR chest 1V portable [id number] Stat Exams 08/21/24 21:09 Completed Radiology Impressions Chest X-Ray 08/24/24 07:57 Impression: Negative chest. Laboratory Results WBC 13.05 10^3/uL (3.29-11.43) H 08/25/24 02:56 RBC 4.31 10^6/uL (3.85-5.65) 08/25/24 02:56 Hgb 12.60 g/dL (11.27-16.99) 08/25/24 02:56 Hct 39.7 % (37-53) 08/25/24 02:56 MCV 92.1 fl (82-101) 08/25/24 02:56 MCH 29.2 pg (27-33) 08/25/24 02:56 MCHC 31.7 g/dL (30-55) 08/25/24 02:56 RDW 13.3 % (12.1-15.1) 08/25/24 02:56 Plt Count 266 10^3/cmm (157-399) 08/25/24 02:56 MPV 9.6 fL (7.4-10.4) 08/25/24 02:56 Neut % (Auto) 82.3 % 08/25/24 02:56 Lymph % (Auto) 7.4 % 08/25/24 02:56 [place] % (Auto) 7.4 % 08/25/24 02:56 Eos % (Auto) 0.0 % 08/25/24 02:56 Baso % (Auto) 0.2 % 08/25/24 02:56 Neut # (Auto) 10.76 10^3/uL (1.8-7.7) H 08/25/24 02:56 Lymph # (Auto) 1.0 10^3/uL (0.8-4.8) 08/25/24 02:56 [place] # (Auto) 1.0 10^3/uL (0.2-0.9) H 08/25/24 02:56 Eos # (Auto) 0.0 10^3/uL (0.0-0.8) 08/25/24 02:56 Baso # (Auto) 0.0 10^3/uL (0.0-0.1) 08/25/24 02:56 Nucleated RBC % (auto) 0 % 08/25/24 02:56 Nucleated RBCs # 0.0 /100WBC 08/25/24 02:56 Specimen Type Arterial 08/23/24 01:11 Sample Site Radial, right 08/23/24 01:11 ABG pH 7.39 (7.35-7.45) 08/23/24 01:11 ABG pCO2 35.6 mmHg (35-45) 08/23/24 01:11 ABG pO2 84.8 mmHg (80.0-100.0) 08/23/24 01:11 ABG PO2/FiO2 Ratio 403 08/23/24 01:11 ABG HCO3 21.4 mmol/L (22-26) L 08/23/24 01:11 ABG O2 Saturation 97.4 08/23/24 01:11 ABG Base Excess -3.0 mmol/L (-2.0-2.0) L 08/23/24 01:11 Sachin Test Pos 08/23/24 01:11 A-a O2 Gradient 2.6 mmHg (5-10) L 08/23/24 01:11 Hematocrit 40.5 % (42-52) L 08/23/24 01:11 Hgb O2 Saturation 95.7 % (95-100) 08/23/24 01:11 Carboxyhemoglobin 0.6 %THgb (0.4-20.1) 08/23/24 01:11 Methemoglobin 1.1 % (0.4-1.5) 08/23/24 01:11 Total Hemoglobin 13.2 g/dL (14-18) L 08/23/24 01:11 Sodium 143.0 mmol/L (131-143) 08/23/24 01:11 Potassium 4.1 mmol/L (3.5-5.0) 08/23/24 01:11 Glucose 168.0 mg/dL (70-115) H 08/23/24 01:11 Ionized Calcium 1.2 mmol/L (1.1-1.4) 08/23/24 01:11 O2 Delivery Device Room air 08/23/24 01:11 FiO2 21.0 % 08/23/24 01:11 Building Principal ID [email or web address] 08/23/24 01:11 Sodium 142 mmol/L (136-145) 08/25/24 03:00 Potassium 3.7 mmol/L (3.5-5.1) 08/25/24 03:00 Chloride 108 mmol/L (98-107) H 08/25/24 03:00 Carbon Dioxide 22 mmol/L (22-29) 08/25/24 03:00 Anion Gap 15.7 (5-19) 08/25/24 03:00 BUN 12 mg/dL (6-20) 08/25/24 03:00 Creatinine 0.6 mg/dL (0.7-1.2) L 08/25/24 03:00 GFR Calculation 162.9 mL/min (90-130) H 08/25/24 03:00 Glucose 119 mg/dL (65-115) H 08/25/24 03:00 POC Glucose 100 mg/dL (70-110) 08/27/24 11:10 Estimat Average Glucose 114 08/22/24 05:58 Hemoglobin A1c 5.6 % (4.0-6.0) 08/22/24 05:58 Calculated Osmolality 295 mOsm/kg (285-295) 08/25/24 03:00 Lactate 3.4 mmol/L (0.5-2.2) H 08/24/24 10:34 Calcium 8.5 mg/dL (8.5-10.5) 08/25/24 03:00 Phosphorus 3.6 mg/dL (2.5-4.5) 08/25/24 03:00 Magnesium 1.8 mg/dL (1.7-2.3) 08/25/24 03:00 Total Bilirubin 0.2 mg/dL (0.15-1.2) 08/25/24 03:00 AST 9 U/L (0-40) 08/25/24 03:00 ALT 14 U/L (0-41) 08/25/24 03:00 Alkaline Phosphatase 48 U/L (40-130) 08/25/24 03:00 C-Reactive Protein 3.0 mg/L (0.0-4.9) 08/24/24 03:00 Total Protein 5.4 g/dL (6.6-8.7) L 08/25/24 03:00 Albumin 3.4 g/dL (3.5-5.2) L 08/25/24 03:00 Globulin 2.0 g/dL (1.3-4.6) 08/25/24 03:00 Procalcitonin 0.04 ng/mL (0-0.5) 08/24/24 03:00 Urine Color Yellow (Yellow) 08/22/24 05:46 Urine Appearance Clear (CLEAR) 08/22/24 05:46 Urine pH 5.5 (5-7) 08/22/24 05:46 Ur Specific [place] 1.017 (1.005-1.030) 08/22/24 05:46 Urine Protein Negative (Negative) 08/22/24 05:46 Urine Glucose (UA) Trace (Normal) H 08/22/24 05:46 Urine Ketones Negative (Negative) 08/22/24 05:46 Urine Blood Negative (Negative) 08/22/24 05:46 Urine Nitrate Negative (Negative) 08/22/24 05:46 Urine Bilirubin Negative (Negative) 08/22/24 05:46 Urine Urobilinogen 0.2 mg/dL (Negative) 08/22/24 05:46 Ur Leukocyte Esterase Negative (Negative) 08/22/24 05:46 Urine RBC 0-2 /hpf (0-2) 08/22/24 05:46 Urine WBC 0-5 /hpf (0-5) 08/22/24 05:46 Ur Squamous Epith Cells 0-5 /hpf (0-5) 08/22/24 05:46 Amorphous Sediment Not Reportable 08/22/24 05:46 Urine Bacteria None seen /hpf (NONE) 08/22/24 05:46 Hyaline Casts 0.81 /lpf 08/22/24 05:46 Adenovirus (PCR) Not detected (NOT DETECT) 08/25/24 13:30 C. pneumoniae DNA (PCR) Not detected (NOT DETECT) 08/25/24 13:30 Coronavirus 229E (PCR) Not detected (NOT DETECT) 08/25/24 13:30 Human Metapneumovir PCR Not detected (NOT DETECT) 08/25/24 13:30 Influenza A (H1) PCR Not detected (NOT DETECT) 08/25/24 13:30 Influenza A (PCR) Negative (Negative) 08/22/24 10:50 Influ A (H1/09) PCR Not detected (NOT DETECT) 08/25/24 13:30 Influenza A (H3) PCR Not detected (NOT DETECT) 08/25/24 13:30 Influenza Type A (PCR) Not detected (NOT DETECT) 08/25/24 13:30 Influenza Type B (PCR) Not detected (NOT DETECT) 08/25/24 13:30 M. pneumoniae (PCR) Not detected (NOT DETECT) 08/25/24 13:30 Parainfluenza 1 (PCR) Not detected (NOT DETECT) 08/25/24 13:30 Parainfluenza 2 (PCR) Not detected (NOT DETECT) 08/25/24 13:30 Parainfluenza 3 (PCR) Detected (NOT DETECT) A 08/25/24 13:30 Parainfluenza 4 (PCR) Not detected (NOT DETECT) 08/25/24 13:30 RSV (PCR) Negative (Negative) 08/22/24 10:50 RSV Type A (PCR) Not detected (NOT DETECT) 08/25/24 13:30 RSV Type B (PCR) Not detected (NOT DETECT) 08/25/24 13:30 Entero/Rhino (PCR) Not detected (NOT DETECT) 08/25/24 13:30 SARS-CoV-2 (PCR) Not detected (NOT DETECT) 08/25/24 13:30 Vitals Last Vital Signs Temp 98.1 F 08/27/24 12:02 Pulse 94 08/27/24 12:02 Resp 18 08/27/24 12:02 BP 105/55 08/27/24 12:02 Pulse Ox 95 08/27/24 12:02 O2 Del Method Room Air 08/27/24 12:02 FiO2 21 08/25/24 03:47 Discharge Plan Discharge Patient Disposition: Home Condition: Stable Prescriptions: New doxycycline monohydrate 100 mg Tablet 100 mg PO BID 5 Days Qty: 10 0RF prednisone 10 mg tablet See Rx Instructions .ROUTE .COMPLEX Qty: 53 0RF Rx Instructions: 40 mg(4 tabs) a day for 5 days, 30mg (3tabs) for 5 days, 20 mg(2tabs) for 5 days, 10mg(1tab) for 5 days, 5mg(0.5mg) for 5days Continued cetirizine 10 mg tablet 10 mg PO DAILY omeprazole 20 mg capsule,delayed release(DR/EC) 20 mg PO DAILY montelukast [Singulair] 10 mg tablet 10 mg PO DAILY Qty: 30 1RF fluticasone propion-salmeterol [Advair Diskus] 250-50 mcg/dose blister with device 1 inh inhalation BID 30 Days Qty: 60 0RF Rx Instructions: 1-2 inhalations twice daily albuterol sulfate 90 mcg/actuation HFA aerosol inhaler 1 inh inhalation Q6H PRN (Reason: shortness of breath or wheezing) 30 Days Qty: 8.5 0RF ondansetron 4 mg tablet,disintegrating 4 mg PO Q6H PRN (Reason: nausea and vomiting) Qty: 14 0RF albuterol sulfate 2.5 mg /3 mL (0.083 %) solution for nebulization 2.5 mg INHALATION Q4H PRN (Reason: Shortness Of Breath) Qty: 75 0RF fluticasone propionate [Flonase Allergy Relief] 50 mcg/actuation spray,suspension 1 spray intranasal DAILY PRN (Reason: allergy symptoms) Qty: 16 0RF Rx Instructions: administer into each nostril Discontinued prednisone 20 mg tablet 40 mg PO DAILY 5 Days Qty: 10 1RF Rx Instructions: start this medicine on Thursday fluticasone propionate [Flovent HFA] 220 mcg/actuation HFA aerosol inhaler 1 inh inhalation BID Qty: 12 0RF albuterol sulfate [ProAir HFA] 90 mcg/actuation HFA aerosol inhaler 2 puff INHALATION Q4H PRN (Reason: Shortness Of Breath) 30 Days Qty: 8.5 0RF albuterol sulfate [ProAir HFA] 90 mcg/actuation HFA aerosol inhaler 1 inh inhalation Q6H PRN (Reason: shortness of breath or wheezing) Qty: 8.5 3RF Discharge Orders: Discharge Order (Routine); Ordered 08/27/24 Ordered By: Bhavik Lima Referrals: Elpidio Yadav MD [Primary Care Provider, [facility]] - 4-7 days Referral Note: Please call your doctor for the need of a follow up within 4-7 days Discharge Diet: Advance as tolerated Discharge Activity: Resume usual activity Patient Instructions: Asthma Exacerbation - Adult, Doxycycline (By mouth), Prednisone (By mouth), Parainfluenza (GEN), Opioid Safety Discharge Attestations Time Spent in Discharge Care*: greater than 30 min Quality Metrics Clinical Quality Measures [ No reported AMI, CVA or VTE this stay] Coding Level of Care Code 69529 Total time (in minutes) for Discharge: 45 Diagnoses GERD (gastroesophageal reflux disease) K21.9 Severe asthma with acute exacerbation J45.901 Lactic acidosis E87.20 Steroid-induced hyperglycemia R73.9; T38.0X5A Parainfluenza virus bronchitis J20.4
== END 2024-08-27 13:20 | disposition home or self-care (01) | DRG 202 ==
LOC: ER 08-22 01:07 → CSU 08-22 02:49 → ICU 08-22 12:14 → MEDSURG 08-27 00:27
PROVIDERS: Internal Medicine; Admitting Provider Internal Medicine; Emergency Provider Family Medicine; PCP Family Medicine; Visit Provider Family Medicine
DX: J45.52 Severe persistent asthma with status asthmaticus (principal); E87.20 Acidosis, unspecified; K21.9 Gastro-esophageal reflux disease without esophagitis; R73.9 Hyperglycemia, unspecified; T38.0X5A Adverse effect of glucocorticoids and synthetic analogues, initial encounter; B97.89 Other viral agents as the cause of diseases classified elsewhere; F17.210 Nicotine dependence, cigarettes, uncomplicated; R00.0 Tachycardia, unspecified; Z79.51 Long term (current) use of inhaled steroids; Z79.899 Other long term (current) drug therapy
CPT/HCPCS: 36415; 36416; 36600; 71045; 80048; 80051; 80053; 81001; 82330; 82805; 82962; 83036; 83605; 83735; 84100; 84145; 85025; 86140; 87040; 87070; 87205; 87486; 87581; 87633; 87637; 93005; 94640; 94660; 94664; 96365; 96372; 96374; 96375; 96376; 99285; J0456; J0696; J1200; J1650; J1815; J2060; J2270; J2470; J2765; J2919; J3475; J7030; J7050; J7120; J7512; J7611; J7614; J7626; J9999